=== PATIENT | male | born 1970 | race Caucasian/White ===

== ENCOUNTER 2022-01-30 04:18 | Observation (INO) ==
[2022-01-30] MEDS ORDERED: NITROGLYCERIN 2% OINTMENT 30GM TUBE EXT STA (04:32)
[2022-01-30] MEDS ORDERED: ONDANSETRON INJ 2 MG/ML 2 ML VIAL IV STA (04:32)
[2022-01-30] MEDS ORDERED: fentaNYL citrate 100 MCG/2 ML VIAL IV STA ×2 (04:32→06:12)
--- NOTE | 2022-01-30 04:41 | Emergency Department Note ---
History of Present Illness General Chief complaint: Chest Pain Time Seen by Provider: 01/30/22 04:24 Source: patient Mode of arrival: EMS Limitations: no limitations History of Present Illness Provider complaint: Chest pain Maximum Pain Intensity: 6 This is a 51-year-old male who presents complaining of chest pain. Patient states he woke up tonight with what he thought was indigestion, belching several times, and symptoms temporarily abated however then returned shortly after. He states he feels the pain in the center of his chest, radiating into the bilateral shoulders and into the jaw. He states he did break out in a sweat and felt lightheaded. He then had evolving nausea and just prior to EMS arrival vomited twice. He tried to take 2 ibuprofen at home without any relief. In route EMS provided him with 4 baby aspirin as well as several doses of nitroglycerin which did improve his pain but did not resolve it. Patient denies any prior similar episodes. Patient states he does have medication for high blood pressure and high cholesterol that he was recently prescribed but he has not yet started. He states he is a smoker. He states his father began having heart problems in his 50s. No history of diabetes. He denies any recent fevers, chills, or illness. Home Medications Medication Instructions Recorded Confirmed Type olmesartan 20 1 tab PO DAILY #30 tabs 01/14/22 01/25/22 Rx mg-hydrochlorothiazide 12.5 mg tablet rosuvastatin 20 mg tablet 20 mg PO DAILY #30 tabs 01/14/22 01/25/22 Rx erythromycin 5 mg/gram (0.5 %) eye 0.5 inch ophthalmic (eye) BID #3.5 01/20/22 01/25/22 Rx ointment grams hydrocodone 5 mg-acetaminophen 325 1 tab PO Q4H PRN pain #10 tabs 01/20/22 Rx mg tablet Allergies Allergy/AdvReac Type Severity Reaction Status Date / Time No Known Drug Allergies Allergy Verified 01/28/22 11:10 Past Med/Surg History Medical History Fatty liver GERD (gastroesophageal reflux disease) Hyperlipidemia Hypertension Obesity Smoker Surgical History Family history of reaction to anesthesia FATHER-ALLERGIC TO DEMEROL (BECAME VIOLENT) History of esophagogastroduodenoscopy (EGD) History of tooth extraction Hx of eye surgery LEFT EYE SOCKET SURGERY D/T FX ([facility])-- >15 yrs ago Family History Father Family history of diabetes mellitus Myocardial infarction Mother Family history of diabetes mellitus Other No family history of adverse response to anesthesia Social History Smoking Status: Current every day smoker Tobacco Type: Cigarettes Cigarettes Per Day: 1 pack; Second Hand Exposure: Yes (in the past); Hx Alcohol Use: Yes Alcohol type: hard liquor Alcohol Intake Frequency Comment: drinks a 5th of alcohol a week Hx Substance Use: No Preferred Language: Maori Communication Ability: Effective Visual Impairment: No Limitations Hearing Ability: Normal Sports Specialist Required: No Beliefs That Will Affect Care: None marital status: Current Living Situation: Alone current occupational status: employed current occupation: driver/merchandiser How many Children do You have: 1 Other Information That Helps Us Care for You: No Feels Safe at Home: Yes Safety Concerns: Feels Safe At This Time during the past year weight has: increased > 10 lbs Dental Care, Regularly: Yes Assistive Devices: Denture - Upper Review of Systems A total of 10 systems reviewed and were otherwise negative All systems reviewed & are unremarkable except as noted in HPI & below Physical Exam Vital Signs Vital Signs - 24 hr 01/30/22 04:19 01/30/22 04:32 01/30/22 04:32 Temperature 36.7 C Temperature Source Oral Pulse Rate 68 Pulse Rate [Finger] 77 Pulse Rhythm Regular Pulse Rhythm [Finger] Pulse Strength Normal Pulse Strength [Finger] Respiratory Rate 17 19 Respiratory Effort / Characteristics Non-Labored Spontaneous Non-Labored Spontaneous Respiratory Depth Normal Normal Respiratory Pattern Regular Regular Blood Pressure 126/75 Blood Pressure [Right Arm] 108/80 Blood Pressure Mean 92 Blood Pressure Mean [Right Arm] 89 Pulse Oximetry 94 96 Oxygen Delivery Method Room Air Room Air Room Air Oxygen Flow Rate Sepsis Recent Fever Within 48 Hours No Sepsis New/Unexplained Change in Mental Status N/A Sepsis Action Taken by Nursing No Action Required 01/30/22 04:55 01/30/22 05:16 01/30/22 05:30 Temperature Temperature Source Pulse Rate Pulse Rate [Finger] 67 65 62 Pulse Rhythm Pulse Rhythm [Finger] Pulse Strength Pulse Strength [Finger] Respiratory Rate 13 13 15 Respiratory Effort / Characteristics Non-Labored Spontaneous Non-Labored Spontaneous Respiratory Depth Normal Normal Respiratory Pattern Regular Regular Blood Pressure Blood Pressure [Right Arm] 119/85 113/75 109/76 Blood Pressure Mean Blood Pressure Mean [Right Arm] 96 87 87 Pulse Oximetry 95 96 97 Oxygen Delivery Method Nasal Cannula Nasal Cannula Room Air Oxygen Flow Rate 2 2 Sepsis Recent Fever Within 48 Hours Sepsis New/Unexplained Change in Mental Status Sepsis Action Taken by Nursing 01/30/22 06:03 01/30/22 06:07 01/30/22 06:34 Temperature Temperature Source Pulse Rate Pulse Rate [Finger] 68 62 Pulse Rhythm Pulse Rhythm [Finger] Regular Pulse Strength Pulse Strength [Finger] Normal Respiratory Rate 16 18 Respiratory Effort / Characteristics Non-Labored Spontaneous Non-Labored Spontaneous Respiratory Depth Normal Normal Respiratory Pattern Regular Blood Pressure Blood Pressure [Right Arm] 115/81 132/84 Blood Pressure Mean Blood Pressure Mean [Right Arm] 92 100 Pulse Oximetry 96 97 Oxygen Delivery Method Nasal Cannula Nasal Cannula Room Air Oxygen Flow Rate 2 2 Sepsis Recent Fever Within 48 Hours Sepsis New/Unexplained Change in Mental Status Sepsis Action Taken by Nursing GENERAL: alert, well appearing, well nourished, no distress, non-toxic EYE EXAM: normal conjunctiva, PERRL and EOM's grossly intact OROPHARYNX: no exudate, no erythema, lips, buccal mucosa, and tongue normal and mucous membranes are moist NECK: supple, no nuchal rigidity, no adenopathy, non-tender LUNGS: Clear to auscultation. Normal chest wall mechanics, no w/r/r HEART: no murmurs, S1 normal and S2 normal ABDOMEN: abdomen soft, non-tender, normo-active bowel sounds, no masses, no rebound or guarding. BACK: Back is symmetrical on inspection and there is no deformity, no midline tenderness, no CVA tenderness. SKIN: no rashes and no bruising UPPER EXTREMITIES: upper extremities are grossly normal. FROM, nml pulses b/l. LOWER EXTREMITIES: No pitting edema. FROM, nml pulses b/l. NEURO EXAM: Normal sensorium, cranial nerves II-XII grossly intact, normal speech, no gross weakness of arms, no gross weakness of legs. Gross sensation intact. Course Course 0525: Patient states pain now 2/10. We discussed evolving changes noted on the EKG as well as abnormal troponin. 0550: Discussed with Dr. Pedroza. 0622: Dr. Pedroza now at bedside. Administered Medications Aspirin (Aspirin 81 Mg Ectab) 81 mg PO QAM [facility] Stop: 03/01/22 08:59 Last Admin: 01/31/22 09:20 Dose: 81 mg Documented By: SMRadha Admin: 01/30/22 11:22 Dose: 81 mg Documented By: VINCE Erythromycin (Erythromycin Op Oint 5 Mg/Gm 3.5 Gm Tube) 0.5 appln OP BID TOM Stop: 02/09/22 20:59 Last Admin: 01/30/22 20:10 Dose: 0.5 appln Documented By: PAH Metoprolol Tartrate (Metoprolol Tartrate 25 Mg Tab) 25 mg PO BID TOM Stop: 03/01/22 08:59 Last Admin: 01/31/22 09:20 Dose: 25 mg Documented By: Admin: 01/30/22 20:11 Dose: 25 mg Documented By: Admin: 01/30/22 10:31 Dose: 25 mg Documented By: VINCE Miscellaneous (Remove Nicoderm Patch) 1 each N/A DAILY@0859 [facility] Stop: 03/02/22 08:58 Last Admin: 01/31/22 09:22 Dose: Not Given Documented By: KENNY Nicotine (Nicotine 21 Mg/24 Hr Tdsy) 21 mg TD [facility] TOM Stop: 03/02/22 08:59 Last Admin: 01/31/22 06:17 Dose: 21 mg Documented By: CHANTALE Olmesartan (Olmesartan Medoxomil 20 Mg Tab) 20 mg PO [facility] TOM Stop: 03/02/22 08:59 Last Admin: 01/31/22 09:21 Dose: 20 mg Documented By: KENNY Rosuvastatin Calcium (Rosuvastatin Calcium 20 Mg Tab) 40 mg PO DAILY TOM Stop: 03/01/22 08:59 Last Admin: 01/31/22 09:21 Dose: 40 mg Documented By: Admin: 01/30/22 10:31 Dose: 40 mg Documented By: VINCE Ticagrelor (Ticagrelor 90 Mg Tab) 90 mg PO BID TOM Stop: 03/01/22 20:59 Last Admin: 01/31/22 09:20 Dose: 90 mg Documented By: Admin: 01/30/22 20:11 Dose: 90 mg Documented By: PAH Discontinued Medications Adenosine (Adenosine Iv Soln 3 Mg/Ml 20 Ml Vial) Confirm Administered Dose 60 mg IV .STK-MED ONE Stop: 01/30/22 06:58 Last Admin: 01/30/22 07:54 Dose: 6 mg Documented By: BRINDA Diltiazem HCl (Diltiazem Hcl 5 Mg/Ml 5 Ml Vial ([facility] Use Only)) Confirm Adm inistered Dose 25 mg .ROUTE .STK-MED ONE Stop: 01/30/22 07:53 Last Admin: 01/30/22 07:56 Dose: 15 mg Documented By: BRINDA Fentanyl Citrate (Fentanyl Citrate 100 Mcg/2 Ml Vial) 50 mcg IV NOW STA Stop: 01/30/22 04:33 Last Admin: 01/30/22 04:42 Dose: 50 mcg Documented By: KACEY Fentanyl Citrate (Fentanyl Citrate 100 Mcg/2 Ml Vial) 50 mcg IV NOW STA Stop: 01/30/22 06:13 Last Admin: 01/30/22 06:13 Dose: 50 mcg Documented By: KACEY Fentanyl Citrate (Fentanyl Citrate 100 Mcg/2 Ml Vial) Confirm Administered Dose 100 mcg .ROUTE .STK-MED ONE Stop: 01/30/22 06:17 Last Admin: 01/30/22 07:43 Dose: 100 mcg Documented By: BRINDA Heparin Sodium (Porcine) (Heparin (Porcine) 1000 Unit/Ml 10 Ml ([facility] Use Only)) Confirm Administered Dose 10,000 units .ROUTE .STK-MED ONE Stop: 01/30/22 06:17 Last Admin: 01/30/22 07:43 Dose: 10,000 units Documented By: BRINDA Heparin Sodium (Porcine) (Heparin (Porcine) 1000 Unit/Ml 10 Ml ([facility] Use Only)) Confirm Administered Dose 10,000 units .ROUTE .STK-MED ONE Stop: 01/30/22 06:57 Last Admin: 01/30/22 07:54 Dose: 9,000 units Documented By: BRINDA Heparin Sodium/Sodium Chloride (Heparin In Nss Infusion 1000 Unit/500 Ml (2 U/Ml) Bag) Confirm Administered Dose 3,000 units IV .STK-MED ONE Stop: 01/30/22 06:18 Last Admin: 01/30/22 07:47 Dose: 3,000 units Documented By: RASHEED Sodium Chloride (Nss 1000ml) 1,000 mls @ 75 mls/hr IV .[id number] TOM Stop: 01/30/22 11:49 Last Infusion: 01/30/22 22:57 Dose: 0 mls/hr Documented By: Admin: 01/30/22 09:28 Dose: 75 mls/hr Documented By: VINCE Magnesium Sulfate/Dextrose (Magnesium Sulfate / D5w) 1 gm in 100 mls @ 50 mls/hr IV ONE ONE Stop: 01/30/22 19:08 Last Infusion: 01/30/22 19:46 Dose: 0 mls/hr Documented By: Admin: 01/30/22 17:32 Dose: 50 mls/hr Documented By: VINCE Lorazepam (Lorazepam 0.5 Mg Tab) 0.5 mg PO NOW STA Stop: 01/30/22 17:19 Last Admin: 01/30/22 17:40 Dose: 0.5 mg Documented By: VINCE Metoprolol Tartrate (Metoprolol Tartrate 1 Mg/Ml Vial) Confirm Administered Dose 5 mg IV .STK-MED ONE Stop: 01/30/22 07:05 Last Admin: 01/30/22 07:54 Dose: 5 mg Documented By: BRINDA Metoprolol Tartrate (Metoprolol Tartrate 1 Mg/Ml Vial) Confirm Administered Dose 5 mg IV .STK-MED ONE Stop: 01/30/22 07:31 Last Admin: 01/30/22 09:10 Dose: Not Given Documented By: VINCE Midazolam HCl (Midazolam Hcl 1 Mg/Ml 2ml Vial) Confirm Administered Dose 2 mg .ROUTE .STK-MED ONE Stop: 01/30/22 06:17 Last Admin: 01/30/22 07:43 Dose: 2 mg Documented By: BRINDA Midazolam HCl (Midazolam Hcl 1 Mg/Ml 2ml Vial) Confirm Administered Dose 2 mg .ROUTE .STK-MED ONE Stop: 01/30/22 07:08 Last Admin: 01/30/22 07:55 Dose: 2 mg Documented By: BRINDA Morphine Sulfate (Morphine Sulfate 4 Mg/Ml 1 Ml Carp\Vial) 4 mg IV NOW STA Stop: 01/30/22 05:17 Last Admin: 01/30/22 05:19 Dose: 4 mg Documented By: KACEY Nicardipine HCl (Nicardipine Hcl Inj 2.5 Mg/Ml 10 Ml Amp) Confirm Administered Dose 25 mg .ROUTE .STK-MED ONE Stop: 01/30/22 06:17 Last Admin: 01/30/22 07:43 Dose: 25 mg Documented By: RASHEED Nitroglycerin (Nitroglycerin 2% Ointment 30gm Tube) 1 inch EXT NOW STA Stop: 01/30/22 04:33 Last Admin: 01/30/22 04:53 Dose: 1 inch Documented By: KACEY Nitroglycerin/Dextrose (Nitroglycerin/D5w 100mcg/Ml 20ml Syr) Confirm Administered Dose 2,000 mcg .ROUTE .STK-MED ONE Stop: 01/30/22 06:18 Last Admin: 01/30/22 07:47 Dose: 2,000 mcg Documented By: RASHEED Ondansetron HCl (Ondansetron Inj 2 Mg/Ml 2 Ml Vial) 4 mg IV NOW STA Stop: 01/30/22 04:33 Last Admin: 01/30/22 04:42 Dose: 4 mg Documented By: KACEY Ticagrelor (Ticagrelor 90 Mg Tab) Confirm Administered Dose 180 mg .ROUTE .STK- MED ONE Stop: 01/30/22 08:10 Last Admin: 01/30/22 08:11 Dose: 180 mg Documented By: BRINDA Critical Care Time Critical Care Time: Yes Total Critical Care Time: 46 Critical care of 46 min performed to assess and manage high likelihood of life- threatening ACS, involving labs and imaging performed with assessment to evaluate chest pain diagnosis with frequent reassessment. This time includes bedside time, treatment discussions with patient/family/consultants, documentation time and excludes procedure time. Medical Decision Making Differential Diagnosis Differential diagnoses includes but is not limited to acute coronary syndrome, myocardial infarction, pericarditis, pulmonary embolus, aortic dissection, pneumonia, pneumothorax, musculoskeletal, shingles, esophageal. Medical Records Attestation: I reviewed the patient's medical records. Home Medications Current Medication List: was personally reviewed by me Laboratory Data Attestation: I reviewed the patient's lab results. Result diagrams: 01/31/22 04:54 01/31/22 04:54 Lab Results 01/30/22 01/30/22 01/30/22 Range/Units 04:30 04:30 04:30 WBC 6.86 (4.8-10.8) K/ul RBC 4.57 L (4.63-6.08) M/uL Hgb 14.1 (14.0-18.0) g/dl Hct 41.0 (40.1-51.0) % MCV 89.7 (80.0-100.0) fL MCH 30.9 (25.0-34.0) pg MCHC 34.4 (32.0-36.0) g/dL RDW Std Deviation 40.4 (36.4-46.3) fL RDW Coeff of Marci 12.5 (11.5-14.5) % Plt Count 209 (130-400) K/uL MPV 10.5 (9.4-12.4) fL Immature Gran % (Auto) 0.4 % Neut % (Auto) 60.6 % Lymph % (Auto) 25.2 % [place] % (Auto) 9.9 % Eos % (Auto) 3.2 % Baso % (Auto) 0.7 % Neut # (Auto) 4.15 (1.4-6.5) K/uL Lymph # (Auto) 1.73 (1.2-3.4) K/uL [place] # (Auto) 0.68 (0.24-0.82) K/uL Eos # (Auto) 0.22 (0-0.50) K/uL Baso # (Auto) 0.05 (0-0.2) K/uL Immature Gran # (Auto) 0.03 H (0.00-0.02) K/uL PT 10.7 (9.0-12.0) Seconds INR 1.0 (0.9-1.1) Activ Coag Time Kaolin (94-140) SECONDS Sodium 138 (136-145) mmol/L Potassium 4.1 (3.5-5.1) mmol/L Chloride 104 (98-107) mmol/L Carbon Dioxide 26 (21-32) mmol/L Anion Gap 8 (3-11) BUN 14 (6-23) mg/dl Creatinine 1.03 (0.6-1.4) mg/dl Est Cr Clr Drug Dosing 113.1 ml/min Est GFR ( Amer) 97.0 ml/min Est GFR (Non-Af Amer) 83.7 ml/min BUN/Creatinine Ratio 13.6 (10-20) Glucose 107 H (70-99(Fasting)) mg/dl Calcium 9.2 (8.5-10.1) mg/dl Magnesium 2.0 (1.7-2.4) mg/dl Total Bilirubin 0.4 (0.2-1.0) mg/dl AST 24 (13-39) U/L ALT 33 (7-52) U/L Alkaline Phosphatase 50 (34-104) U/L Troponin I High Sens 44.5 H (0-20) pg/ml Total Protein 6.8 (6.0-8.3) gm/dl Albumin 4.0 (3.4-5.0) gm/dl Globulin 2.8 (2.5-4.0) gm/dl Albumin/Globulin Ratio 1.4 (0.9-2) Lipase 28 (11-82) U/L SARS-CoV-2, RNA, NAAT (NEGATIVE) 01/30/22 01/30/22 01/30/22 Range/Units 04:52 07:19 07:33 WBC (4.8-10.8) K/ul RBC (4.63-6.08) M/uL Hgb (14.0-18.0) g/dl Hct (40.1-51.0) % MCV (80.0-100.0) fL MCH (25.0-34.0) pg MCHC (32.0-36.0) g/dL RDW Std Deviation (36.4-46.3) fL RDW Coeff of Marci (11.5-14.5) % Plt Count (130-400) K/uL MPV (9.4-12.4) fL Immature Gran % (Auto) % Neut % (Auto) % Lymph % (Auto) % [place] % (Auto) % Eos % (Auto) % Baso % (Auto) % Neut # (Auto) (1.4-6.5) K/uL Lymph # (Auto) (1.2-3.4) K/uL [place] # (Auto) (0.24-0.82) K/uL Eos # (Auto) (0-0.50) K/uL Baso # (Auto) (0-0.2) K/uL Immature Gran # (Auto) (0.00-0.02) K/uL PT (9.0-12.0) Seconds INR (0.9-1.1) Activ Coag Time Kaolin 208 H 248 H (94-140) SECONDS Sodium (136-145) mmol/L Potassium (3.5-5.1) mmol/L Chloride (98-107) mmol/L Carbon Dioxide (21-32) mmol/L Anion Gap (3-11) BUN (6-23) mg/dl Creatinine (0.6-1.4) mg/dl Est Cr Clr Drug Dosing ml/min Est GFR ( Amer) ml/min Est GFR (Non-Af Amer) ml/min BUN/Creatinine Ratio (10-20) Glucose (70-99(Fasting)) mg/dl Calcium (8.5-10.1) mg/dl Magnesium (1.7-2.4) mg/dl Total Bilirubin (0.2-1.0) mg/dl AST (13-39) U/L ALT (7-52) U/L Alkaline Phosphatase (34-104) U/L Troponin I High Sens (0-20) pg/ml Total Protein (6.0-8.3) gm/dl Albumin (3.4-5.0) gm/dl Globulin (2.5-4.0) gm/dl Albumin/Globulin Ratio (0.9-2) Lipase (11-82) U/L SARS-CoV-2, RNA, NAAT NEGATIVE (NEGATIVE) Imaging Data My Impression: X-ray: I interpreted the following studies. Chest: A single view study of the chest was reviewed and was negative for cardiomegaly, focal infiltrate, effusion, pulmonary edema, or wide mediastinum. ECG Data Attestation: I personally reviewed and interpreted this ECG as follows: Indication: + chest pain Rate (beats per minute): 60 Rhythm: + normal sinus ECG Intervals/blocks: + Normal QRS and + Normal QT ECG [place]: + Normal ECG ST segments: + ST depression (III,aVF, V2-5) and + ST elevation (I, aVL) MDM Narrative An order was placed for continuous cardiac monitoring. The monitor shows a rate of _90_ with _normal sinus__ rhythm. This is a 51-year-old male presents emergency department with chest pain, nausea and vomiting, diaphoresis, and lightheadedness. Patient with multiple risk factors for coronary artery disease although no documented prior history. He has not yet started medications that were recently prescribed for high blood pressure and high cholesterol. Patient is a smoker. There is family history of heart problems beginning in the 50s and his father. Initial EKG abnormal however I do not feel enough to call a heart alert. Patient did have some improvement of pain with nitro given by EMS and was given aspirin prior to arrival. He was given additional nitro and fentanyl with continued improvement of pain. Repeat EKG #2 showed improvement in the abnormalities that were initially seen. We continue to try and make the patient pain-free and perform serial EKGs. Unfortunately patient's pain persisted, and repeat EKG showed recurring ST depressions with concern for possible early ST elevation although not yet 1 mm. Given risk factors, concerning story, EKG changes, and a troponin that then resulted elevated, I discussed the case with on-call interventional cardiology, or Dr. Pedroza. He agreed patient should be taken for cardiac catheterization more urgently. A heart alert was activated and [facility] staff including Dr. Pedroza presented to the bedside. Dr. Pedroza did not wish for patient to have any other anticoagulation prior to his evaluation and cath. Patient taken to the [facility] in stable condition. He was hemodynamically stable in the emergency room, no ectopy or dysrhythmia noted. I do not suspect acute infectious or vascular etiology of his pain. I do not suspect occult pulmonary etiology including pneumonia or PE. Impression & Plan Chest pain, Tobacco abuse, Acute coronary syndrome, Hypertension, Abnormal ECG Discharge Plan Visit Data Chief Complaint: Chest Pain ED Provider: Melissa Garcia Discharge Problem: Chest pain, Tobacco abuse, Acute coronary syndrome, Hypertension, Abnormal ECG Patient Disposition: Admitted As Inpatient Discharge Instructions Interventions: ED Discharge Assessment Last Done: 01/30/22 06:34
[2022-01-30 04:45] LABS: Basophils # (auto) 0.05 K/uL (0-0.2); Basophils % (auto) 0.7 %; Eosinophils # (auto) 0.22 K/uL (0-0.50); Eosinophils % (auto) 3.2 %; Hemoglobin 14.1 g/dl (14.0-18.0); Immature Granulocytes # (auto) 0.03 K/uL (0.00-0.02); Immature Granulocytes % (auto) 0.4 %; Lymphocytes # (auto) 1.73 K/uL (1.2-3.4); Lymphocytes % (auto) 25.2 %; Mean Corpuscular Hemoglobin 30.9 pg (25.0-34.0); Mean Corpuscular Hgb Conc 34.4 g/dL (32.0-36.0); Mean Corpuscular Volume 89.7 fL (80.0-100.0); Mean Platelet Volume 10.5 fL (9.4-12.4); Monocytes # (auto) 0.68 K/uL (0.24-0.82); Monocytes % (auto) 9.9 %; Neutrophils # (auto) 4.15 K/uL (1.4-6.5); Neutrophils % (auto) 60.6 %; Platelet Count 209 K/uL (130-400); RDW Coefficient of Variation 12.5 % (11.5-14.5); RDW Standard Deviation 40.4 fL (36.4-46.3); Red Blood Count 4.57 M/uL (4.63-6.08); White Blood Count 6.86 K/ul (4.8-10.8)
[2022-01-30 04:56] LABS: Prothrombin Time 10.7 Seconds (9.0-12.0)
[2022-01-30 05:09] LABS: Troponin I High Sensitivity 44.5 pg/ml (0-20)
[2022-01-30] MEDS ORDERED: MoRPHine SULFATE 4 MG/ML 1 ML CARP\\VIAL IV STA (05:16)
[2022-01-30 05:22] LABS: Albumin Globulin Ratio 1.4 (0.9-2); BUN Creatinine Ratio 13.6 (10-20); Bilirubin,Total 0.4 mg/dl (0.2-1.0); Calcium 9.2 mg/dl (8.5-10.1); Creatinine Clr Calc Pharmacy 113.1 ml/min; Est GFR (Non-African American) 83.7 ml/min; Globulin 2.8 gm/dl (2.5-4.0); Potassium 4.1 mmol/L (3.5-5.1); Total Protein 6.8 gm/dl (6.0-8.3)
[2022-01-30] MEDS ORDERED: HEPARIN (PORCINE) 1000 UNIT/ML 10 ML (CATH LAB USE ONLY) ONE ×2 (06:16→06:56)
[2022-01-30] MEDS ORDERED: fentaNYL citrate 100 MCG/2 ML VIAL ONE (06:16)
[2022-01-30] MEDS ORDERED: niCARdipine HCL INJ 2.5 MG/ML 10 ML AMP ONE (06:16)
[2022-01-30] MEDS ORDERED: MIDAZOLAM HCL 1 MG/ML 2ML VIAL ONE ×2 (06:16→07:07)
[2022-01-30] MEDS ORDERED: NITROGLYCERIN/D5W 100MCG/ML 20ML SYR ONE (06:17)
--- NOTE | 2022-01-30 06:36 | Pre Anesthesia Assessment ---
Date of Service January 30, 2022 Pre Sedation Assessment Vital Signs Temp Pulse Pulse Resp BP BP Pulse Ox 01/30/22 06:34 01/30/22 06:07 62 18 132/84 97 01/30/22 06:03 68 16 115/81 96 01/30/22 05:30 62 15 109/76 97 01/30/22 05:16 65 13 113/75 96 01/30/22 04:55 67 13 119/85 95 01/30/22 04:32 77 19 108/80 96 01/30/22 04:32 01/30/22 04:19 98.1 F 68 17 126/75 94 O2 Del Method O2 Flow Rate 01/30/22 06:34 Room Air 01/30/22 06:07 Nasal Cannula 2 01/30/22 06:03 Nasal Cannula 2 01/30/22 05:30 Room Air 01/30/22 05:16 Nasal Cannula 2 01/30/22 04:55 Nasal Cannula 2 01/30/22 04:32 Room Air 01/30/22 04:32 Room Air 01/30/22 04:19 Room Air Cardiovascular RRR, no murmur, no edema Respiratory normal respiratory effort, lungs clear to auscultation Pre-Sedation Airway Assessment Smoking Status: Current every day smoker Hx Sleep Apnea: No Hx Difficult Intubation: No Short, Thick Neck: No Oral Cavity: + WNL Mallampati Class: III ASA: ASA3 Procedure Planning Contraindications for Sedation: none Current Medications Reviewed: Yes Notes The planned sedation has been discussed with the patient. Informed Consent was obtained. I have identified the patient, determined the appropriateness of sedation and have assessed the patient immediately prior to the procedure. All medicine(s) and interventions are by my order.
--- NOTE | 2022-01-30 06:42 | Cardiology Consultation ---
Date of Consultation January 30, 2022 Assessment & Plan (1) Acute coronary syndrome: Plan Presentation consistent with high risk ACS and recommend proceeding with urgent cardiac catheterization and possible primary PCI. No apparent contraindications to procedure. Discussed risks, benefits, alternatives of procedure with patient and they are willing to proceed. Further recommendations pending findings of coronary angiography. History of Present Illness History of Present Illness Mr. Palacio is a 51-year-old man here with acute chest pain and ECG concerning for high risk ACS. Patient seen emergently in the ED after heart alert activated due to refractory chest pain and dynamic ST changes.. No prior cardiac history. Cardiac risk factors include family history of premature CAD (father in 50s), ongoing smoking (1ppd x30), dyslipidemia, hypertension, obesity. Currently taking no medications. Other medical issues include GERD, fatty liver, prior left neck mass. Chest pain began acutely tonight ~2 AM, waking him from sleep. Pain across his chest to his back into his arms. Initially thought was indigestion, tried ibuprofen without relief. Called EMS, given sublingual nitroglycerin in route arriving to ED around 430. Denies similar symptoms in the past. Had stuttering chest pain in ED at its worst 10 out of 10, down to 1 out of 10 after morphine, fentanyl and nitro patch. Systolic pressures to 90s with initial nitroglycerin. Initial ECG showed sinus rhythm with new ST depression/T wave inversions in leads III, aVF as well as very subtle <[address] elevations in 1 and aVL. Serial ECGs showed resolution of ST depressions and return of ST depressions with recurrent chest pain. HS TropI elevated at 44. Social history: Lives independently, . Works as a key punch operator. Allergies Allergy/AdvReac Type Severity Reaction Status Date / Time No Known Drug Allergies Allergy Verified 01/28/22 11:10 Home Medications Medication Instructions Recorded Confirmed Type olmesartan 20 1 tab PO DAILY #30 tabs 01/14/22 01/25/22 Rx mg-hydrochlorothiazide 12.5 mg tablet rosuvastatin 20 mg tablet 20 mg PO DAILY #30 tabs 01/14/22 01/25/22 Rx erythromycin 5 mg/gram (0.5 %) eye 0.5 inch ophthalmic (eye) BID #3.5 01/20/22 01/25/22 Rx ointment grams hydrocodone 5 mg-acetaminophen 325 1 tab PO Q4H PRN pain #10 tabs 01/20/22 01/25/22 Rx mg tablet Patient History Medical History Fatty liver GERD (gastroesophageal reflux disease) Hyperlipidemia Hypertension Obesity Smoker Surgical History Family history of reaction to anesthesia FATHER-ALLERGIC TO DEMEROL (BECAME VIOLENT) History of esophagogastroduodenoscopy (EGD) History of tooth extraction Hx of eye surgery LEFT EYE SOCKET SURGERY D/T FX ([facility])-- >15 yrs ago Family History Father Family history of diabetes mellitus Myocardial infarction Mother Family history of diabetes mellitus Other No family history of adverse response to anesthesia Social History Smoking Status: Current every day smoker Tobacco Type: Cigarettes Cigarettes Per Day: 1 Pack Daily - advised; Second Hand Exposure: Yes (in the past); Hx Alcohol Use: Yes Alcohol type: hard liquor Alcohol Intake Frequency Comment: drinks a 5th of alcohol a week Hx Substance Use: No Preferred Language: Telugu Communication Ability: Effective Visual Impairment: No Limitations Hearing Ability: Normal Grain Elevator Clerk Required: No Beliefs That Will Affect Care: None marital status: Current Living Situation: Alone current occupational status: employed current occupation: trash truck driver How many Children do You have: 1 Feels Safe at Home: Yes during the past year weight has: increased > 10 lbs Dental Care, Regularly: Yes Assistive Devices: Denture - Upper and Glasses Review of Systems Review of Systems: All systems reviewed & are unremarkable except as noted in HPI & below Physical Exam Physical Exam: General: Uncomfortable HEENT: Sclerae anicteric Lungs: Clear anteriorly Cardiac: Distant heart sounds, regular, no murmurs Vascular: 2+ radial, diminished DP pulses bilaterally Abdomen: Soft, nontender Extremities: Well perfused, no peripheral edema Neuro: Nonfocal Psych: Alert orient x3, normal affect and mood Results & Data ([facility]) Vital Signs (Past 12 Hours) Vital Signs Temp Pulse Pulse Resp BP BP Pulse Ox 01/30/22 06:34 01/30/22 06:07 62 18 132/84 97 01/30/22 06:03 68 16 115/81 96 01/30/22 05:30 62 15 109/76 97 01/30/22 05:16 65 13 113/75 96 01/30/22 04:55 67 13 119/85 95 01/30/22 04:32 77 19 108/80 96 01/30/22 04:32 01/30/22 04:19 98.1 F 68 17 126/75 94 O2 Del Method O2 Flow Rate 01/30/22 06:34 Room Air 01/30/22 06:07 Nasal Cannula 2 01/30/22 06:03 Nasal Cannula 2 01/30/22 05:30 Room Air 01/30/22 05:16 Nasal Cannula 2 01/30/22 04:55 Nasal Cannula 2 01/30/22 04:32 Room Air 01/30/22 04:32 Room Air 01/30/22 04:19 Room Air PG Care Time/CCT Total # of Minutes Spent Total Time Spent with Patient: Total time spent is greater than 50% in coordination of care (as documented) at patient's floor/unit and/or counseling patient: Coding Level of Care Code 05290 Inpt Consult Level 4 Diagnoses Acute coronary syndrome I24.9
--- NOTE | 2022-01-30 06:49 | History & Physical Report ---
Date of Service January 30, 2022 Assessment & Plan (1) Chest pain: Plan: 51yo male with history of HTN, HLP, tobacco use and family history of CAD in father (in late 50's) presents with sharp, substernal chest pain with associated nausea/lightheadedness and diaphoresis. Found with dynamic EKG changes predominantly in lateral leads. Initial troponin is elevated at 44.5. Patient still with mild chest discomfort despite treatment with ASA, Nitro, Fentanyl. Heart Alert activated. Patient is presently being taken to the microbiology lab technician. -Will admit to PCU/ICU -Post catheterization treatment per Cardiology -Trend troponin -Check HgbA1C, lipid panel -Initiate ASA -Check 2D echo (2) Hypertension: Plan: Blood pressure has been adequately controlled, presently 132/84. He is prescribed Olmesartan/HCTZ which he does not routinely take. -Continue to monitor BP -Hold Olmesartan/HCTZ for now (3) Hyperlipidemia: Plan: Patient with reported history of HLP. He is prescribed Crestor which he does not routinely take -Will check Lipid panel -Continue Crestor (4) Smoker: Plan: Active smoker. -Cessation counseling ordered Patient also reports he drinks approximately 1/5 of liquor per week. -Will place on AWSS At risk protocol and monitor closely for signs and symptoms of EtOH withdrawal F/E/N - Heplock. Check Mg and PO4 and replete as needed. K is acceptable at 4.1, NPO for now Ppx - per cardiology after microbiology lab technician Code - Full Code per discussion with patient Dispo - Patient presently in microbiology lab technician - further instruction forthcoming. Note will be updated with findings and recommendations History of Present Illness Chief Complaint: chest pain Primary Care Provider: DO Soham Lee Hakeem is a 51yo male with history of HTN, HLP, Obesity (BMI=37.7), tobacco abuse and FHx of CAD (Father in late 50's with CAD) presenting with chest pain. Patient was in his usual state of health until he woke from sleep at 02:00 with sharp, substernal chest pain with some belching. He thought the discomfort may be secondary to indigestion. He drank some water and took 2 Ibuprofen with some relief. The pain then returned with some diaphoresis and lightheadedness, radiation to the jaw and bilateral shoulders, more severe. He also felt dizzy and nauseous with one episode of non-bloody vomiting. He checked [employer] and called EMS due to concern for [place]. He was provided Nitro and ASA 324mg by EMS with some improvement in chest discomfort. Upon arrival to the ER he was afebrile, HD stable. EKG with dynamic changes in the lateral leads - I and aVL. He was provided with Fentanyl, Nitropaste - still with some chest pain, now 04/19. Code Heart was activated secondary to dynamic EKG changes, persistence of chest pain. Patient has been taken to the microbiology lab technician. Further information forthcoming. ER Course: Fentanyl 50mcg x 2 doses, Zofran 4mg, Nitro 1 inch, Morphine 4mg IV Allergies Allergy/AdvReac Type Severity Reaction Status Date / Time No Known Drug Allergies Allergy Verified 01/28/22 11:10 Home Medications Medication Instructions Recorded Confirmed Type olmesartan 20 1 tab PO DAILY #30 tabs 01/14/22 01/25/22 Rx mg-hydrochlorothiazide 12.5 mg tablet rosuvastatin 20 mg tablet 20 mg PO DAILY #30 tabs 01/14/22 01/25/22 Rx erythromycin 5 mg/gram (0.5 %) eye 0.5 inch ophthalmic (eye) BID #3.5 01/20/22 01/25/22 Rx ointment grams hydrocodone 5 mg-acetaminophen 325 1 tab PO Q4H PRN pain #10 tabs 01/20/22 01/25/22 Rx mg tablet Past Med/Surg History Medical History Fatty liver GERD (gastroesophageal reflux disease) Hyperlipidemia Hypertension Obesity Smoker Surgical History Family history of reaction to anesthesia FATHER-ALLERGIC TO DEMEROL (BECAME VIOLENT) History of esophagogastroduodenoscopy (EGD) History of tooth extraction Hx of eye surgery LEFT EYE SOCKET SURGERY D/T FX ([facility])-- >15 yrs ago Family History Father Family history of diabetes mellitus Myocardial infarction Mother Family history of diabetes mellitus Other No family history of adverse response to anesthesia Social History Smoking Status: Current every day smoker Tobacco Type: Cigarettes Cigarettes Per Day: 1 Pack Daily - advised; Second Hand Exposure: Yes (in the past); Hx Alcohol Use: Yes Alcohol type: hard liquor Alcohol Intake Frequency Comment: drinks a 5th of alcohol a week Hx Substance Use: No Preferred Language: Sami Communication Ability: Effective Visual Impairment: No Limitations Hearing Ability: Normal Dolphin Researcher Required: No Beliefs That Will Affect Care: None marital status: Current Living Situation: Alone current occupational status: employed current occupation: route salesman and driver How many Children do You have: 1 Feels Safe at Home: Yes during the past year weight has: increased > 10 lbs Dental Care, Regularly: Yes Assistive Devices: Denture - Upper and Glasses Review of Systems Review of Systems: All systems reviewed & are unremarkable except as noted in HPI & below Physical Exam Physical Exam: General: patient resting comfortably, NAD, non-toxic in appearance, AA&O x 4, appears anxious Skin: warm, dry, intact, no rashes or lesions HEENT: NC/AT, PERRL, EOMI, anicteric sclera, conjunctiva without injection, external ear normal to inspection and nontender, nares patent, moist mucus membranes, dentition intact, no oropharyngeal lesions, neck supple, trachea midline, no LAD, no thyromegaly, no JVD Heart: +S1/S2, regular, bracycardic with HR 58-60, occasional ectopy, no m/r/g Lungs: equal air entry bilaterally, no rales/rhonchi/wheezes Abd: +BS, soft, NT/ND, no masses/organomegaly/ascites Ext: warm, 2+ pulses in UE/LE bilaterally, no clubbing/cyanosis or edema Neuro: nonfocal, patient AA&O x 4, speech intact, no facial droop, moving all extremities on command with equal strength 5/5 Results & Data Results & Data ([facility]) Vital Signs (Past 12 Hours) Vital Signs Temp Pulse Pulse Resp BP BP Pulse Ox 01/30/22 06:07 62 18 132/84 97 01/30/22 06:03 68 16 115/81 96 01/30/22 05:30 62 15 109/76 97 01/30/22 05:16 65 13 113/75 96 01/30/22 04:55 67 13 119/85 95 01/30/22 04:32 77 19 108/80 96 01/30/22 04:32 01/30/22 04:19 36.7 C 68 17 126/75 94 O2 Del Method O2 Flow Rate 01/30/22 06:07 Nasal Cannula 2 01/30/22 06:03 Nasal Cannula 2 01/30/22 05:30 Room Air 01/30/22 05:16 Nasal Cannula 2 01/30/22 04:55 Nasal Cannula 2 01/30/22 04:32 Room Air 01/30/22 04:32 Room Air 01/30/22 04:19 Room Air Laboratory Results Laboratory Results WBC 6.86 K/ul (4.8-10.8) 01/30/22 04:30 RBC 4.57 M/uL (4.63-6.08) L 01/30/22 04:30 Hgb 14.1 g/dl (14.0-18.0) 01/30/22 04:30 Hct 41.0 % (40.1-51.0) 01/30/22 04:30 MCV 89.7 fL (80.0-100.0) 01/30/22 04:30 MCH 30.9 pg (25.0-34.0) 01/30/22 04:30 MCHC 34.4 g/dL (32.0-36.0) 01/30/22 04:30 RDW Std Deviation 40.4 fL (36.4-46.3) 01/30/22 04:30 RDW Coeff of Marci 12.5 % (11.5-14.5) 01/30/22 04:30 Plt Count 209 K/uL (130-400) 01/30/22 04:30 MPV 10.5 fL (9.4-12.4) 01/30/22 04:30 Immature Gran % (Auto) 0.4 % 01/30/22 04:30 Neut % (Auto) 60.6 % 01/30/22 04:30 Lymph % (Auto) 25.2 % 01/30/22 04:30 [place] % (Auto) 9.9 % 01/30/22 04:30 Eos % (Auto) 3.2 % 01/30/22 04:30 Baso % (Auto) 0.7 % 01/30/22 04:30 Neut # (Auto) 4.15 K/uL (1.4-6.5) 01/30/22 04:30 Lymph # (Auto) 1.73 K/uL (1.2-3.4) 01/30/22 04:30 [place] # (Auto) 0.68 K/uL (0.24-0.82) 01/30/22 04:30 Eos # (Auto) 0.22 K/uL (0-0.50) 01/30/22 04:30 Baso # (Auto) 0.05 K/uL (0-0.2) 01/30/22 04:30 Immature Gran # (Auto) 0.03 K/uL (0.00-0.02) H 01/30/22 04:30 PT 10.7 Seconds (9.0-12.0) 01/30/22 04:30 INR 1.0 (0.9-1.1) 01/30/22 04:30 Sodium 138 mmol/L (136-145) 01/30/22 04:30 Potassium 4.1 mmol/L (3.5-5.1) 01/30/22 04:30 Chloride 104 mmol/L (98-107) 01/30/22 04:30 Carbon Dioxide 26 mmol/L (21-32) 01/30/22 04:30 Anion Gap 8 (3-11) 01/30/22 04:30 BUN 14 mg/dl (6-23) 01/30/22 04:30 Creatinine 1.03 mg/dl (0.6-1.4) 01/30/22 04:30 Est Cr Clr Drug Dosing 113.1 ml/min 01/30/22 04:30 Est GFR ( Amer) 97.0 ml/min 01/30/22 04:30 Est GFR (Non-Af Amer) 83.7 ml/min 01/30/22 04:30 BUN/Creatinine Ratio 13.6 (10-20) 01/30/22 04:30 Glucose 107 mg/dl (70-99(Fasting)) H 01/30/22 04:30 Calcium 9.2 mg/dl (8.5-10.1) 01/30/22 04:30 Magnesium 2.0 mg/dl (1.7-2.4) 01/30/22 04:30 Total Bilirubin 0.4 mg/dl (0.2-1.0) 01/30/22 04:30 AST 24 U/L (13-39) 01/30/22 04:30 ALT 33 U/L (7-52) 01/30/22 04:30 Alkaline Phosphatase 50 U/L (34-104) 01/30/22 04:30 Troponin I High Sens 44.5 pg/ml (0-20) H 01/30/22 04:30 Total Protein 6.8 gm/dl (6.0-8.3) 01/30/22 04:30 Albumin 4.0 gm/dl (3.4-5.0) 01/30/22 04:30 Globulin 2.8 gm/dl (2.5-4.0) 01/30/22 04:30 Albumin/Globulin Ratio 1.4 (0.9-2) 01/30/22 04:30 Lipase 28 U/L (11-82) 01/30/22 04:30 SARS-CoV-2, RNA, NAAT NEGATIVE (NEGATIVE) 01/30/22 04:52 ECG Additional Comments: ST depressions present in I and aVL PG Care Time/CCT Total # of Minutes Spent Total Time Spent with Patient: Total time spent is greater than 50% in coordination of care (as documented) at patient's floor/unit and/or counseling patient: Coding Level of Care Code 18438 Initial Inpt Care Lvl 3 Diagnoses Chest pain R07.9 Hypertension I10 Hyperlipidemia E78.5 Smoker F17.200
[2022-01-30] MEDS ORDERED: ADENOSINE IV SOLN 3 MG/ML 20 ML VIAL IV ONE (06:57)
[2022-01-30] MEDS ORDERED: METOPROLOL TARTRATE 1 MG/ML VIAL IV ONE ×2 (07:04→07:30)
--- NOTE | 2022-01-30 07:20 | Electrocardiogram Report ---
Test Reason : Blood Pressure : / mmHG Vent. Rate : 060 BPM Atrial Rate : 060 BPM P-R Int : 154 ms QRS Dur : 112 ms QT Int : 422 ms P-R-T Axes : 055 038 -03 degrees QTc Int : 422 ms Normal sinus rhythm ST segment changes concerning for injury Abnormal ECG When compared with ECG of 20-JAN-2022 12:04, Premature supraventricular complexes are no longer Present ST now depressed in Anterior leads Confirmed by Jay Carpenter ([id number]) on 01/30/2022 7:20:13 AM Referred By: REFERRED SELF Confirmed By:Robson Carpenter
--- NOTE | 2022-01-30 07:21 | Electrocardiogram Report ---
Test Reason : Blood Pressure : / mmHG Vent. Rate : 064 BPM Atrial Rate : 064 BPM P-R Int : 164 ms QRS Dur : 096 ms QT Int : 416 ms P-R-T Axes : -07 011 028 degrees QTc Int : 429 ms Poor data quality, interpretation may be adversely affected Normal sinus rhythm Normal ECG When compared with ECG of 30-JAN-2022 04:52, (unconfirmed) No significant change was found Confirmed by Jay Carpenter ([id number] on 01/30/2022 7:20:39 AM Referred By: REFERRED SELF Confirmed By:Robson Carpenter
--- NOTE | 2022-01-30 07:21 | Electrocardiogram Report ---
Test Reason : Blood Pressure : / mmHG Vent. Rate : 062 BPM Atrial Rate : 062 BPM P-R Int : 154 ms QRS Dur : 098 ms QT Int : 414 ms P-R-T Axes : 054 051 004 degrees QTc Int : 420 ms Normal sinus rhythm ST segement changes concerning for injury Abnormal ECG When compared with ECG of 30-JAN-2022 05:11, Inverted T waves have replaced nonspecific T wave abnormality in Inferior leads Confirmed by Jay Carpenter ([id number]) on 01/30/2022 7:21:15 AM Referred By: REFERRED SELF Confirmed By:Robson Carpenter
--- NOTE | 2022-01-30 07:22 | Electrocardiogram Report ---
Test Reason : Blood Pressure : / mmHG Vent. Rate : 063 BPM Atrial Rate : 063 BPM P-R Int : 150 ms QRS Dur : 102 ms QT Int : 424 ms P-R-T Axes : 053 049 004 degrees QTc Int : 433 ms Sinus rhythm with marked sinus arrhythmia Nonspecific ST abnormality Abnormal ECG When compared with ECG of 30-JAN-2022 04:25, (unconfirmed) Minor improvement in ST segement changes Confirmed by Jay Carpenter ([id number]) on 01/30/2022 7:21:36 AM Referred By: REFERRED SELF Confirmed By:Robson Carpenter
--- NOTE | 2022-01-30 07:23 | XRay Report ---
SINGLE VIEW CHEST CLINICAL HISTORY: Atypical chest pain. FINDINGS: An AP, portable, upright chest radiograph is compared to study dated 01/29/2019. The heart is mildly enlarged. The pulmonary vasculature is not congested. Atelectasis is noted at the lung base s. The lungs and pleural spaces are otherwise clear. No pneumothorax is seen. The bony thorax is beka sly intact. IMPRESSION: Moderate cardiomegaly with no acute cardiopulmonary abnormality identified. ACT 112: Negative or not required by law. Electronically signed by: Nathan Hammond M.D. 01/30/2022 7:22 AM
[2022-01-30] MEDS ORDERED: dilTIAZem HCl 5 MG/ML 5 ML VIAL (CATH LAB USE ONLY) ONE (07:52)
[2022-01-30] MEDS ORDERED: TICAGRELOR 90 MG TAB ONE (08:09)
[2022-01-30] MEDS ORDERED: ACETAMINOPHEN 325 MG TAB PO PRN (08:11)
--- NOTE | 2022-01-30 08:11 | Post Anesthesia Assessment ---
Date of Service January 30, 2022 Post Sedation Assessment Vital Signs Temp Pulse Pulse Resp BP BP Pulse Ox 01/30/22 07:54 126 H 157/87 H 01/30/22 06:34 01/30/22 06:07 62 18 132/84 97 01/30/22 06:03 68 16 115/81 96 01/30/22 05:30 62 15 109/76 97 01/30/22 05:16 65 13 113/75 96 01/30/22 04:55 67 13 119/85 95 01/30/22 04:32 77 19 108/80 96 01/30/22 04:32 01/30/22 04:19 98.1 F 68 17 126/75 94 O2 Del Method O2 Flow Rate 01/30/22 07:54 01/30/22 06:34 Room Air 01/30/22 06:07 Nasal Cannula 2 01/30/22 06:03 Nasal Cannula 2 01/30/22 05:30 Room Air 01/30/22 05:16 Nasal Cannula 2 01/30/22 04:55 Nasal Cannula 2 01/30/22 04:32 Room Air 01/30/22 04:32 Room Air 01/30/22 04:19 Room Air Recovery Score Activity: Moves 4 extremities Respiration: Deep Breath/Cough Circulation: +/-20% PreAnes Value Consciousness: Fully Awake Oxygen Saturation: O2 needed for >90% Discharge Sedation Level of Care: Fast Track Phase II Post Sedation Plan On clinical assessment, the patient appears to have tolerated the sedation without complications. Patient is recovering as anticipated. Patient will continue to be monitored by nursing and may be discharged when sedation discharge criteria are met per below protocol. Upon Completions of procedure up to 15 minutes continue every 5 minute vital signs and the P.A.R. score; then discharge to a Phase I or Fast Track to Phase II per the following guidelines: * Discharge Patient to appropriate Phase II area if PAR is 8 or greater or ret urn to pre- procedure baseline. The post - procedure orders will be as directed. * If PAR score is less than 8 or not return to pre-procedure baseline then patient will follow Phase I monitoring till PAR is reached for Phase II. The Phase I may be done in procedure room or may call to secure a Phase I area. * If naloxone or flumazenil are used for reversal, hold in Phase I for continued monitoring from when last reversal dose was given for a minimum of 60 minutes or longer pending the nurse and/or physician discretion of patient condition before discharge to Phase II. Please call the Sedation Physician to re-evaluate and complete post-note for discharge to Phase II area. Do NOT discharge from procedure sedation or Phase 1 until post- sedation evaluation note is complete by procedure /sedation MD Sedation Discharge Instructions to be given to the patient at discharge to home.
[2022-01-30] MEDS ORDERED: SODIUM CHLORIDE 0.9% 1000ML 1,000 ML IV SCH (08:30)
[2022-01-30] MEDS ORDERED: ROSUVASTATIN CALCIUM 20 MG TAB PO SCH (09:00)
--- NOTE | 2022-01-30 09:07 | Cardiac Catheterization ---
[facility] Data: Equipment Maintenance Technician Cardiac Status Clinical evaluation leading to the procedure CAD Presenation: Non STEMI Anginal Classification: CCS IV Diagnostic Physicians Name: Jay Pedroza MD Closure Device Recommendations: PCI without planned CABG Cardiac Cath Procedure Full Procedure Date January 30, 2022 Pre-Procedure Diagnosis Pre-Procedure Diagnosis: Non STEMI AUC Score AUC Score: 8 Post-Procedure Diagnosis Post-Procedure Diagnosis: Severe CAD Procedure(s) Performed Procedure(s) Performed: Coronary Angiography, Left Heart Cath and IVUS Draftsperson Jay Pedroza MD Engineering Group Leader(s) Jayden Estimated Blood Loss Estimated Blood Loss: 15 Medication(s) Medication(s): Adenosine, Fentanyl, Heparin, Lidocaine 1%, Metoprolol, Nicardipine, Nitroglycerin and Versed Medication(s): Ticagrelor, diltiazem Summary of Findings Indication: High risk ACS Access: 6 Fr right radial artery Catheters: [place], EBU 3.5 guide, pigtail Findings: LM -normal caliber, no significant disease LAD -medium caliber, 70 to 80% earlymid stenosis just after takeoff of D1. Remainder of mid segment, distal vessel without significant disease and wraps around apex. Medium D1 100% occluded at branch point in mid vessel (initially not appreciated). Circumflex -medium caliber, 20 to 30% distal disease. Left PLB without significant disease. RCA -dominant, large caliber, angulated proximal segment (krueger's crook) with 40% stenosis, 30% mid segment disease. Distal vessel without significant disease. Large PDA without disease. LVEDP -19 -- PCI -- Antithrombotic therapy: Heparin, ticagrelor Procedure: Left main cannulated with EBU 3.5 guide Pre-procedure flow FABIANA 3 flow in LAD. FABIANA 0 flow in branch of D1. BMW wire passed across lesion into distal LAD IVUS catheter placed in the mid LAD. Pullback revealed severe, mildly calcified focal disease just after takeoff of D1 (MLA 2.4 mm). Mid LAD lesion predilated with 2.5 compliant balloon Dilated lesion stented with 3.5 x 26 mm Krzysztof drug-eluting stent Stent post-dilated with 4.5 noncompliant balloon proximally IC vasodilators administered for spasm After stent implantation noted to have partial recanalization of previously occluded branch of D1 D1 wired through stent struts with commercial helicopter pilot 50 wire Mid D1 and stent struts dilated with 2.5 balloon Mid D1 stented with 2.25 x 15 mm Krzysztof drug-eluting stent, postdilated with stent balloon. Additional vasodilators administered Post procedure FABIANA 3 flow, stents well expanded with minimal residual stenosis and no apparent cardiac complications. Arterial Closure: TR band Procedure course complicated by asymptomatic, hemodynamically stable SVT and later atrial fibrillation with RVR which began during initial left heart catheterization. Treated with adenosine x1, Lopressor x2, diltiazem. A. fib persisted during case but adequately rate controlled. Summary: 1. Multivessel coronary artery disease 100% acute mid first diagonal occlusion -70 to 80% earlymid LAD 40% proximal RCA 2. Mildly elevated intracardiac filling pressure 3. Intraprocedure atrial fibrillation with RVR 4. Successful PCI of proximal to mid LAD with single drug-eluting stent (3.5 x 26 mm [place]; postdilated with 4.5 NC). 5. Successful PCI of mid D1 occlusion with single drug-eluting stent (2.25 x 15 mm Krzysztof). Recommendations: To PCU for continued monitoring, serial troponins and echocardiogram Loaded with ticagrelor 180 mg in Equipment Maintenance Technician Continue dual-antiplatelet therapy for at least 1 year Continue statin, and ASCVD risk factor modification Consult cardiac Rehab Rate control for atrial fibrillation, started on metoprolol. Will hold off on anticoagulation at this time. Reconsider if persists Hemodynamics Rest Ao:: 118/87/108 Final Ao: 98/75/86 LV: 98/19 Recommendations Recommendations: PCI without planned CABG Specimens Specimens: None Radiation Exposure (mGy) 4832 Contrast (mls) 160 Anesthesia Moderate 1190-9027 Procedural Complication(s) None Disposition PCU I attest to the content of the Intraoperative Record and any orders documented therein. Any exceptions are noted below. [facility] Card Cath Procedure Codes Cardiac Catheterization Procedure 1: Cardiovascular Cath Procedures: 90256 Coronaries and LHC (+/-LV) Therapeutic Services & Ancillary Procedure 1: Cardiovascular Tx and Anc Procedures: 80437 IV Ultrasound (Coronary or Graft) Moderate Sedation Procedure 1: Sedation/Anesthesia: 43353 Mod Sedation by the same physician;Init15 Min Child Age 5 & Up Procedure 2: Sedation/Anesthesia: 08860 Mod Sedation by the same physician; Ea [id number] Minutes Stenting Procedure 1: Cardiovascular Stent Procedures: 70403 Perc transluminal revascularization of acute sub/total occl, aMI PG Care Time/CCT Total # of Minutes Spent Total Time Spent with Patient: Total time spent is greater than 50% in coordination of care (as documented) at patient's floor/unit and/or counseling patient:
[2022-01-30] MEDS: METOPROLOL TARTRATE 25 MG TAB PO SCH ×2 (10:31→20:11)
[2022-01-30] MEDS: ROSUVASTATIN CALCIUM 20 MG TAB PO SCH (10:31)
[2022-01-30] MEDS: ASPIRIN 81 MG ECTAB PO SCH (11:22)
--- NOTE | 2022-01-30 13:32 | Hospitalist Progress Note ---
Date of Service January 30, 2022 Assessment & Plan (1) Chest pain: Plan: 51yo male with history of HTN, HLP, tobacco use and family history of CAD in father (in late 50's) presents with sharp, substernal chest pain with associated nausea/lightheadedness and diaphoresis. Found with dynamic EKG changes predominantly in lateral leads. Initial troponin is elevated at 44.5. Patient had 2 drug-eluting stents placed in his mid left coronary artery 1 in the 1st diagonal -Post catheterization treatment per Cardiology -Trend troponin -Check HgbA1C, lipid panel -Initiate ASA -Check 2D echo Patient requested Chantix for smoking cessation after counseling on my visit this morning (2) Hypertension: Plan: Resume home losartan starting metoprolol (3) Hyperlipidemia: Plan: Patient with reported history of HLP. He is prescribed Crestor which will be reordered for him -Will check Lipid panel (4) Smoker: Plan: Active smoker. -Cessation counseling ordered Patient also reports he drinks approximately 1/5 of liquor per week. States he does not have any issues when he stops drinking never has had shakes or withdrawal Code - Full Code per discussion with patient Admission and Anticipated Discharge Date Admission Date: January 30, 2022 Subjective Patient was seen after returning from cardiac Instructional Design Specialist where he had 2 stents 1 in his LAD 1 his diagonal 1. He is pain-free his cath entrance site on his right wrist is without discomfort. We talked about smoking cessation he wishes for Chantix at the time of discharge Also talked about lifestyle changes and medication changes that are upcoming with his recent NSTEMI Review of Systems Review of Systems: Mild distress and fatigue no headache, no visual changes no speech or swallowing issues Resolution of chest pain, no pressure or palpitations no shortness of breath, cough or wheezes no abdominal pain, nausea or vomiting, diarrhea or constipation no dysuria, hematuria or frequency no focal joint pain or swelling no back pain, CVA tenderness or radicular pain no bruising, bleeding or rashes no focal signs of weakness or numbness or altered sensation no complaints of anxiety or depression.. Physical Exam Physical Exam: The patient appeared well nourished and normally developed. Vital signs as documented. Head exam is normocephalic atraumatic Neck is without JVD, thyromegaly, or carotid bruits. Lungs are clear to auscultation, no focal loss of breath sounds Cardiac exam, Rhythm is regular.. No murmurs, rubs or gallops. Abdominal exam reveals normal bowel sounds, soft non tender, no masses Extremities are nonedematous and both pedal pulses are present Neurologic exam is alert and oriented, no focal loss of strength or sensation Skin is with catheterization entrance site is clean dry and intact he has good distal pulses and capillary refill of his right hand Psychologically is without concerns for anxiety or depression.. Results & Data Results & Data ([facility]) Vital Signs (Past 12 Hours) Vital Signs Temp Pulse Pulse Resp BP BP BP 01/30/22 12:16 97.5 F L 106 H 18 122/84 01/30/22 10:30 82 18 125/82 01/30/22 10:00 90 20 116/69 01/30/22 09:30 60 18 117/74 01/30/22 09:00 90 20 113/76 01/30/22 08:45 78 18 110/71 01/30/22 08:30 97.7 F 89 18 101/77 01/30/22 08:30 97.7 F 89 18 101/77 01/30/22 07:54 126 H 157/87 H 01/30/22 06:34 01/30/22 06:07 62 18 132/84 01/30/22 06:03 68 16 115/81 01/30/22 05:30 62 15 109/76 01/30/22 05:16 65 13 113/75 01/30/22 04:55 67 13 119/85 01/30/22 04:32 77 19 108/80 01/30/22 04:32 01/30/22 04:19 98.1 F 68 17 126/75 Pulse Ox O2 Del Method O2 Flow Rate 01/30/22 12:16 95 Room Air 01/30/22 10:30 98 Room Air 01/30/22 10:00 94 Room Air 01/30/22 09:30 94 Room Air 01/30/22 09:00 92 Room Air 01/30/22 08:45 93 Room Air 01/30/22 08:30 94 Room Air 01/30/22 08:30 94 Room Air 01/30/22 07:54 01/30/22 06:34 Room Air 01/30/22 06:07 97 Nasal Cannula 2 01/30/22 06:03 96 Nasal Cannula 2 01/30/22 05:30 97 Room Air 01/30/22 05:16 96 Nasal Cannula 2 01/30/22 04:55 95 Nasal Cannula 2 01/30/22 04:32 96 Room Air 01/30/22 04:32 Room Air 01/30/22 04:19 94 Room Air PG Care Time/CCT Total # of Minutes Spent Total Time Spent with Patient: Total time spent is greater than 50% in coordination of care (as documented) at patient's floor/unit and/or counseling patient: Coding Level of Care Code None Diagnoses Chest pain R07.9 Hypertension I10 Hyperlipidemia E78.5 Smoker F17.200
[2022-01-30] MEDS ORDERED: METOPROLOL TARTRATE 1 MG/ML VIAL IV PRN (17:09)
[2022-01-30] MEDS ORDERED: MAGNESIUM SULFATE / D5W 1 GM/100 ML BAG IV ONE (17:09)
[2022-01-30] MEDS ORDERED: LORazepam 0.5 MG TAB PO STA (17:18)
[2022-01-30] MEDS ORDERED: LORazepam 0.5 MG TAB PO PRN (17:18)
--- NOTE | 2022-01-30 19:25 | XCELERA ---
[id number]
[2022-01-30] MEDS: ERYTHROMYCIN OP OINT 5 MG/GM 3.5 GM TUBE OP SCH (20:10)
[2022-01-30] MEDS: TICAGRELOR 90 MG TAB PO SCH (20:11)
[2022-01-31 05:06] LABS: Basophils # (auto) 0.03 K/uL (0-0.2); Basophils % (auto) 0.4 %; Eosinophils # (auto) 0.17 K/uL (0-0.50); Eosinophils % (auto) 2.3 %; Hematocrit (blood only) 42.5 % (40.1-51.0); Hemoglobin 14.7 g/dl (14.0-18.0); Immature Granulocytes # (auto) 0.02 K/uL (0.00-0.02); Immature Granulocytes % (auto) 0.3 %; Lymphocytes # (auto) 1.96 K/uL (1.2-3.4); Lymphocytes % (auto) 26.2 %; Mean Corpuscular Hgb Conc 34.6 g/dL (32.0-36.0); Mean Corpuscular Volume 89.7 fL (80.0-100.0); Mean Platelet Volume 10.6 fL (9.4-12.4); Monocytes # (auto) 0.62 K/uL (0.24-0.82); Monocytes % (auto) 8.3 %; Neutrophils # (auto) 4.68 K/uL (1.4-6.5); Neutrophils % (auto) 62.5 %; Platelet Count 205 K/uL (130-400); RDW Coefficient of Variation 12.2 % (11.5-14.5); RDW Standard Deviation 40.3 fL (36.4-46.3); Red Blood Count 4.74 M/uL (4.63-6.08); White Blood Count 7.48 K/ul (4.8-10.8)
[2022-01-31] MEDS ORDERED: NICOTINE POLACRILEX 2 MG GUM MT PRN (05:50)
--- NOTE | 2022-01-31 05:52 | Communication Note ---
Date of Service: January 31, 2022 Informed by nurse that patient was attempting to go to elevator to go smoke. Ordering prn nicotine gum and nicotine patch (to start at 9AM).
[2022-01-31 05:53] LABS: BUN Creatinine Ratio 9.6 (10-20); Calcium 9.1 mg/dl (8.5-10.1); Creatinine Clr Calc Pharmacy 100.5 ml/min; Est GFR (African American) 85.8 ml/min; Est GFR (Non-African American) 74.1 ml/min; Potassium 3.9 mmol/L (3.5-5.1)
[2022-01-31] MEDS: NICOTINE 21 MG/24 HR TDSY TD SCH (06:17)
[2022-01-31] MEDS: ASPIRIN 81 MG ECTAB PO SCH (09:20)
[2022-01-31] MEDS: METOPROLOL TARTRATE 25 MG TAB PO SCH (09:20)
[2022-01-31] MEDS: TICAGRELOR 90 MG TAB PO SCH ×2 (09:20→20:10)
[2022-01-31] MEDS: OLMESARTAN MEDOXOMIL 20 MG TAB PO SCH (09:21)
[2022-01-31] MEDS: ROSUVASTATIN CALCIUM 20 MG TAB PO SCH (09:21)
[2022-01-31] MEDS: ERYTHROMYCIN OP OINT 5 MG/GM 3.5 GM TUBE OP SCH ×2 (09:36→20:09)
[2022-01-31] MEDS ORDERED: METOPROLOL TARTRATE 25 MG TAB PO ONE (12:23)
--- NOTE | 2022-01-31 12:23 | Cardiology Progress Note ---
Date of Service January 31, 2022 Assessment & Plan (1) CAD (coronary artery disease): Plan: Occluded D1 post ISAI 75% mid LAD post ISAI 40% proximal RCA 2. Preserved LV functionEF 50 to 55%, lateral wall motion abnormality 3. Atrial fibrillation with RVR 4. Hypertension 5. Dyslipidemia 6. Tobacco abuse 7. Mildly dilated aortic root4.4 cm Patient chest pain-free. Hemodynamically stable. No access to complications. No signs of heart failure exam. Remains in atrial fibrillation with RVR, asymptomatic. Recommend additional rate control and anticoagulation. Trend troponin until peak Additional 25 mg metoprolol now, increase to 50 mg twice daily Start Eliquis 5 mg twice daily Transition to clopidogrel tomorrow morning, load with 300 mg in a.m. Stop aspirin Continue ARB, statin Stressed smoking cessation Interested in cardiac rehab Monitor on telemetry overnight. Assuming adequate rate control, likely discharge in morning on dual therapy with clopidogrel, Eliquis. Follow-up with me in 1 to 2 weeks. If A. fib persists would plan for cardioversion after 4 weeks of anticoagulation Admission and Anticipated Discharge Date Admission Date: January 30, 2022 Subjective Feeling well this morning. Reports brief (seconds) of chest discomfort, nothing like what brought him in. Reported shortness of breath lying on left side. No shortness of breath Flat. No palpitations or presyncope. Telemetry reviewedremains in atrial fibrillation with heart rates primarily in the 100s up to 120s, did have 5-second pause overnight. Review of Systems Review of Systems: All systems reviewed & are unremarkable except as noted in HPI & below Physical Exam Physical Exam: General: Comfortable HEENT: Sclerae anicteric Lungs: Clear anteriorly Cardiac: Distant heart sounds, irregular irregular Vascular: Right radial artery access site with no ecchymosis, hematoma. Distal pulse and sensation intact. Abdomen: Soft, nontender Extremities: Well perfused, no peripheral edema Neuro: Nonfocal Psych: Alert orient x3, normal affect and mood Results & Data ([facility]) Vital Signs (Past 12 Hours) Vital Signs Temp Pulse Pulse Resp BP Pulse Ox O2 Del Method 01/31/22 12:05 98.1 F 101 H 18 118/73 95 Room Air 01/31/22 07:53 98.1 F 93 H 18 125/86 94 Room Air 01/31/22 02:54 97.9 F 99 H 18 109/59 L 94 Room Air 01/31/22 00:37 88 PG Care Time/CCT Total # of Minutes Spent Total Time Spent with Patient: Total time spent is greater than 50% in coordination of care (as documented) at patient's floor/unit and/or counseling patient: Coding Level of Care Code 60950 Subseq Hosp Care Lvl 3 Diagnoses CAD (coronary artery disease) I25.10
[2022-01-31 12:51] LABS: Estimated Average Glucose 108 mg/dl; Hemoglobin A1C 5.4 % (4.5-5.6)
[2022-01-31] MEDS: APIXABAN 5 MG TABLET PO SCH ×2 (13:20→20:08)
--- NOTE | 2022-01-31 14:27 | Hospitalist Progress Note ---
Date of Service January 31, 2022 Assessment & Plan (1) Chest pain: Plan: 51yo male with history of HTN, HLP, tobacco use and family history of CAD in father (in late 50's) presents with sharp, substernal chest pain with associated nausea/lightheadedness and diaphoresis. Found with dynamic EKG changes predominantly in lateral leads. Initial troponin is elevated at 44.5. Patient had 2 drug-eluting stents placed in his mid left coronary artery 1 in the 1st diagonal -Post catheterization treatment per Cardiology initially dual antiplatelet agents high intensity statin beta-antonio however with persistent atrial fibrillation will now transition to adding apixaban likely will go home on apixaban and Plavix but will await cardiology's final determination -Trend troponin, has escalated with still not peaked. The degree of escalation will consider diagnosis of NSTEMI - HgbA1C 5.4 ,-lipid panel total cholesterol 199 LDL 116 HDL 33 -Check 2D echo ejection fraction preserved at 50-55% some inferior wall hypokinesis of the mid lateral wall seen in left ventricle Patient requested Chantix for smoking cessation after counseling on my visit this morning (2) Atrial fibrillation: Plan: Post procedure defibrillation has ensued and persisted throughout the night despite beta blockers and magnesium, likely patient will go home on a anticoagulant he was started on Eliquis here in the hospital (3) Hypertension: Plan: Resume home losartan starting metoprolol, dose increased due to atrial fibrillation (4) Hyperlipidemia: Plan: Patient with reported history of HLP. He is prescribed Crestor which will be reordered for him -Will check Lipid panel (5) Smoker: Plan: Active smoker. -Cessation counseling ordered Patient also reports he drinks approximately 1/5 of liquor per week. States he does not have any issues when he stops drinking never has had shakes or withdrawal Code - Full Code per discussion with patient Admission and Anticipated Discharge Date Admission Date: January 30, 2022 Subjective Patient told me he feels well this morning he did have some issues with nicotine withdrawal and requested nicotine patch and requests Chantix at time of discharge. He remains in atrial fibrillation with rates around 100. His troponin is also escalated we are still waiting for it to peak. He was seen by cardiology who request another day we will start anticoagulation given his persistent atrial fibrillation and likely reduced to anticoagulation +1 antiplatelet agent Telemetry atrial fibrillation with heart rates primarily in the 100s up to 120s, did have 5-second pause overnight. Review of Systems Review of Systems: Mild distress and fatigue no headache, no visual changes no speech or swallowing issues Resolution of chest pain, no pressure or palpitations no shortness of breath, cough or wheezes no abdominal pain, nausea or vomiting, diarrhea or constipation no dysuria, hematuria or frequency Right wrist access site is clean dry and intact with good sensation and warmth no back pain, CVA tenderness or radicular pain no bruising, bleeding or rashes no focal signs of weakness or numbness or altered sensation no complaints of anxiety or depression.. Physical Exam Physical Exam: The patient appeared well nourished and normally developed. Vital signs as documented. Head exam is normocephalic atraumatic Neck is without JVD, thyromegaly, or carotid bruits. Lungs are clear to auscultation, no focal loss of breath sounds Cardiac exam, Rhythm is regular.. No murmurs, rubs or gallops. Abdominal exam reveals normal bowel sounds, soft non tender, no masses Extremities without edema bilaterally Neurologic exam is alert and oriented, no focal loss of strength or sensation Skin is with catheterization entrance site is clean dry and intact he has good distal pulses and capillary refill of his right hand Psychologically is without concerns for anxiety or depression.. Results & Data Results & Data ([facility]) Vital Signs (Past 12 Hours) Vital Signs Temp Pulse Pulse Resp BP Pulse Ox O2 Del Method 01/31/22 08:00 78 01/31/22 12:05 98.1 F 101 H 18 118/73 95 Room Air 01/31/22 07:53 98.1 F 93 H 18 125/86 94 Room Air 01/31/22 02:54 97.9 F 99 H 18 109/59 L 94 Room Air PG Care Time/CCT Total # of Minutes Spent Total Time Spent with Patient: Total time spent is greater than 50% in coordination of care (as documented) at patient's floor/unit and/or counseling patient: Coding Level of Care Code 82966 Subseq Hosp Care Lvl 3 Diagnoses Chest pain R07.9 Atrial fibrillation I48.91 Hypertension I10 Hyperlipidemia E78.5 Smoker F17.200
[2022-01-31] MEDS: METOPROLOL TARTRATE 50 MG TAB PO SCH (20:08)
--- NOTE | 2022-01-31 21:44 | Electrocardiogram Report ---
Test Reason : Blood Pressure : / mmHG Vent. Rate : 081 BPM Atrial Rate : 258 BPM P-R Int : 000 ms QRS Dur : 104 ms QT Int : 356 ms P-R-T Axes : 000 056 043 degrees QTc Int : 413 ms Atrial fibrillation Anterolateral ST elevation Abnormal ECG When compared with ECG of 30-JAN-2022 05:43, Atrial fibrillation has replaced Sinus rhythm ST more elevated in Anterolateral leads T wave inversion no longer evident in Inferior leads Confirmed by Irvin Segovia ([id number]) on 01/31/2022 9:43:51 PM Referred By: REFERRED SELF Confirmed By:Irvin Segovia
[2022-02-01 06:38] LABS: Basophils # (auto) 0.03 K/uL (0-0.2); Basophils % (auto) 0.4 %; Eosinophils # (auto) 0.19 K/uL (0-0.50); Eosinophils % (auto) 2.3 %; Hematocrit (blood only) 44.3 % (40.1-51.0); Hemoglobin 15.2 g/dl (14.0-18.0); Immature Granulocytes # (auto) 0.03 K/uL (0.00-0.02); Immature Granulocytes % (auto) 0.4 %; Lymphocytes # (auto) 2.28 K/uL (1.2-3.4); Lymphocytes % (auto) 27.5 %; Mean Corpuscular Hemoglobin 30.8 pg (25.0-34.0); Mean Corpuscular Hgb Conc 34.3 g/dL (32.0-36.0); Mean Corpuscular Volume 89.9 fL (80.0-100.0); Mean Platelet Volume 10.8 fL (9.4-12.4); Monocytes # (auto) 0.92 K/uL (0.24-0.82); Monocytes % (auto) 11.1 %; Neutrophils # (auto) 4.83 K/uL (1.4-6.5); Neutrophils % (auto) 58.3 %; Platelet Count 221 K/uL (130-400); RDW Coefficient of Variation 12.2 % (11.5-14.5); RDW Standard Deviation 40.2 fL (36.4-46.3); Red Blood Count 4.93 M/uL (4.63-6.08); White Blood Count 8.28 K/ul (4.8-10.8)
[2022-02-01 07:00] LABS: BUN Creatinine Ratio 10.9 (10-20); Calcium 9.4 mg/dl (8.5-10.1); Creatinine Clr Calc Pharmacy 104.4 ml/min; Est GFR (African American) 89.6 ml/min; Est GFR (Non-African American) 77.3 ml/min; Potassium 3.9 mmol/L (3.5-5.1)
[2022-02-01] MEDS ORDERED: CLOPIDOGREL BISULFATE 300 MG TAB PO ONE (08:00)
[2022-02-01] MEDS: ROSUVASTATIN CALCIUM 20 MG TAB PO SCH (09:09)
[2022-02-01] MEDS: APIXABAN 5 MG TABLET PO SCH (09:09)
[2022-02-01] MEDS: OLMESARTAN MEDOXOMIL 20 MG TAB PO SCH (09:09)
[2022-02-01] MEDS: METOPROLOL TARTRATE 50 MG TAB PO SCH (09:09)
[2022-02-01] MEDS: NICOTINE 21 MG/24 HR TDSY TD SCH (09:10)
[2022-02-01] MEDS: ERYTHROMYCIN OP OINT 5 MG/GM 3.5 GM TUBE OP SCH (09:10)
--- NOTE | 2022-02-01 09:58 | Cardiology Progress Note ---
Date of Service February 01, 2022 Assessment & Plan (1) CAD (coronary artery disease): Plan: Occluded D1 post ISAI 75% mid LAD post ISAI 40% proximal RCA 2. Preserved LV functionEF 50 to 55%, lateral wall motion abnormality 3. Atrial fibrillation with RVR 4. Hypertension 5. Dyslipidemia 6. Tobacco abuse 7. Mildly dilated aortic root4.4 cm Patient chest pain-free, Hstrop down trending. Hemodynamically stable. No access to complications. No signs of heart failure exam. Remains in atrial fibrillation with RVR, asymptomatic. Rate control borderline. From a cardiac standpoint OK with discharge today. Will arrange for f/up with me on Monday. -- Home on Eliquis 5mg BID, clopidogrel 75mg daily -- Increase metoprolol to 75mg BID Continue ARB, statin Interested in smoking cessation, cardiac rehab If A. fib persists as an outpatient will consider cardioversion. Admission and Anticipated Discharge Date Admission Date: January 30, 2022 Subjective Feeling well this morning. Last night felt palpitations, dizziness when lying flat before bedtime, improved with Ativan. Symptoms better this morning. Up walking around room without chest pain. No other new concerns. tele reviewed -- remains in AF HR in 90s overnight, 100-110s this morning. Review of Systems Review of Systems: All systems reviewed & are unremarkable except as noted in HPI & below Physical Exam Physical Exam: General: Comfortable HEENT: Sclerae anicteric Lungs: Clear anteriorly Cardiac: Distant heart sounds, irregular irregular Vascular: Right radial artery access site with no ecchymosis, hematoma. Distal pulse and sensation intact. Abdomen: Soft, nontender Extremities: Well perfused, no peripheral edema Neuro: Nonfocal Psych: Alert orient x3, normal affect and mood Results & Data ([facility]) Vital Signs (Past 12 Hours) Vital Signs Temp Pulse Pulse Resp BP Pulse Ox O2 Del Method 02/01/22 07:26 97.5 F L 93 H 18 111/73 97 Room Air 02/01/22 04:40 97.5 F L 94 H 17 95/70 L 93 Room Air 01/31/22 22:18 91 H 01/31/22 22:53 97.7 F 96 H 18 105/78 93 PG Care Time/CCT Total # of Minutes Spent Total Time Spent with Patient: Total time spent is greater than 50% in coordination of care (as documented) at patient's floor/unit and/or counseling patient: Coding Level of Care Code 22783 Subseq Hosp Care Lvl 3 Diagnoses CAD (coronary artery disease) I25.10
--- NOTE | 2022-02-01 13:10 | Discharge Summary ---
Date of Service date of admission - January 30, 2022 date of discharge - February 01, 2022 Admission HPI Per Admitting Provider Soham Palacio is a 51yo male with history of HTN, HLP, Obesity (BMI=37.7), tobacco abuse and FHx of CAD (Father in late 50's with CAD) presenting with chest pain. Patient was in his usual state of health until he woke from sleep at 02:00 with sharp, substernal chest pain with some belching. He thought the discomfort may be secondary to indigestion. He drank some water and took 2 Ibuprofen with some relief. The pain then returned with some diaphoresis and lightheadedness, radiation to the jaw and bilateral shoulders, more severe. He also felt dizzy and nauseous with one episode of non-bloody vomiting. He checked [employer] and called EMS due to concern for [place]. He was provided Nitro and ASA 324mg by EMS with some improvement in chest discomfort. Upon arrival to the ER he was afebrile, HD stable. EKG with dynamic changes in the lateral leads - I and aVL. He was provided with Fentanyl, Nitropaste - still with some chest pain, now 04/19. Code Heart was activated secondary to dynamic EKG changes, persistence of chest pain. Patient has been taken to the label tacker. Further information forthcoming. ER Course: Fentanyl 50mcg x 2 doses, Zofran 4mg, Nitro 1 inch, Morphine 4mg IV Principal Diagnosis NSTEMI New-onset atrial fibrillation Discharge Exam gen - NAD, obese neck - no JVD mouth - MMM heart - irregular, s1 s2, no murmur lungs - CTA b/l abd - soft NT ND BS+ ext - no edema vascular - right radial pulse 2+, no hematoma, no aneurysm, no bruising Discharge Data Allergies Allergy/AdvReac Type Severity Reaction Status Date / Time No Known Drug Allergies Allergy Verified 02/04/22 14:43 Consultations Cardiac Rehabilitation Cardiology - Jay Pedroza MD Procedures Performed Operation Date: 01/30/22 06:30 Actual Procedures p Cineradiography w/Routine Exam - Jay Pedroza MD p Cath, Left with Cors and Vent - Jay Pedroza MD p Aspiration/PCI w/ISAI for Stemi - Jay Pedroza MD s IVUS Coronary Single Vessel - Jay Pedroza MD Findings: LM -normal caliber, no significant disease LAD -medium caliber, 70 to 80% earlymid stenosis just after takeoff of D1. Remainder of mid segment, distal vessel without significant disease and wraps around apex. Medium D1 100% occluded at branch point in mid vessel (initially not appreciated). Circumflex -medium caliber, 20 to 30% distal disease. Left PLB without significant disease. RCA -dominant, large caliber, angulated proximal segment (krueger's crook) with 40% stenosis, 30% mid segment disease. Distal vessel without significant disease. Large PDA without disease. LVEDP -19 Procedure course complicated by asymptomatic, hemodynamically stable SVT and later atrial fibrillation with RVR which began during initial left heart catheterization. Treated with adenosine x1, Lopressor x2, diltiazem. A. fib persisted during case but adequately rate controlled. Summary: 1. Multivessel coronary artery disease * 100% acute mid first diagonal occlusion * 70 to 80% earlymid LAD * 40% proximal RCA 2. Mildly elevated intracardiac filling pressure 3. Intraprocedure atrial fibrillation with RVR 4. Successful PCI of proximal to mid LAD with single drug-eluting stent (3.5 x 26 mm [place]; postdilated with 4.5 NC). 5. Successful PCI of mid D1 occlusion with single drug-eluting stent (2.25 x 15 mm [place]). Echocardiogram: * EF 50-55% * mild hypokinesis of the mid lateral wall * mild aortic root dilatation - 4.4cm * no significant valvular pathology Ordered Studies Chest X-Ray 01/30/22 04:32 SINGLE VIEW CHEST CLINICAL HISTORY: Atypical chest pain. FINDINGS: An AP, portable, upright chest radiograph is compared to study dated 01/29/2019. The heart is mildly enlarged. The pulmonary vasculature is not congested. Atelectasis is noted at the lung bases. The lungs and pleural spaces are otherwise clear. No pneumothorax is seen. The bony thorax is grossly intact. IMPRESSION: Moderate cardiomegaly with no acute cardiopulmonary abnormality hola ntified. ACT 112: Negative or not required by law. Electronically signed by: Nathan Hammond M.D. 01/30/2022 7:22 AM Hospital Course (1) NSTEMI (non-ST elevated myocardial infarction): Patient presented with sharp, substernal chest pain. Initial EKG with dynamic lateral ST changes in I/AVL highly concerning for ACS. Initial troponin 44.5. Patient was taken emergently to the cardiac catheterization lab by Dr Jay Pedroza. This revealed 100% acute mid first diagonal occlusion, a 70-80% early LAD lesion, and a 40% proximal RCA lesion. He underwent ISAI to the first diagonal lesion as well as the early LAD lesion. During the cath he developed SVT followed by a.fib with RVR. Post-intervention he was admitted to the telemetry unit. Peak troponin was 10,422. Echo showed EF 50-55% with lateral wall hypokinesis. HgbA1C 5.4% Lipid panel showed the following -- total cholesterol 199; LDL 116; HDL 33; triglycerides of 360. He was initiated on beta antonio, effient, crestor was increased to 40mg/day, and ARB was continued. He was ultimately started on Eliquis for his a.fib. Beta antonio was titrated for rate control of his a.fib. He had no further chest pain. He remained hemodynamically stable. He was counseled on the importance of smoking cessation. Final discharge cardiac medication list - * crestor 40mg daily * plavix 75mg daily * eliquis 5mg BID * nitro SL prn * metoprolol tartrate 50mg BID * olmesartan 20mg daily He will f/u with [facility] Cardiology shortly after discharge. He will be referred to cardiac rehab in the near-future as well. (2) CAD (coronary artery disease): s/p cardiac catheterization by Dr Pedroza with the following - 100% acute mid first diagonal occlusion -70 to 80% earlymid LAD 40% proximal RCA See #1 above for additional details. (3) Atrial fibrillation: Developed such during his heart catheterization. Started on beta blockers and anticoagulation with Eliquis. Rates were acceptable by time of discharge with metoprolol 50mg BID and Eliquis 5mg BID. (4) Hypertension: He will continue olmesartan but HCTZ has been stopped. Metoprolol initiated while here. (5) Hyperlipidemia: Lipids as in #1 above. Crestor was increased to 40mg/day during the stay. He may need a dedicated agent for low HDL and high triglycerides. (6) Smoker: Nicoderm patch 21mg/day was used during the stay and prescribed at discharge. He will speak with his PCP about other smoking cessation options including wellbutrin or Chantix. He understands the importance of smoking cessation. (7) Aortic root dilatation: Aortic root was 4.4cm on echocardiogram. He was counseled on the significance of this finding. Smoking cessation needed. Strict BP control needed. Surveillance will be needed with echo and/or CTA chest moving forward. Total Time Total Time Spent Total Time Spent (In Minutes): 50 Discharge Plan Discharge Items Patient Disposition: Home - Self-Care Reason For Visit: chest pain Discharge Diagnosis: 1. chest pain due to heart attack 2. atrial fibrillation 3. mild aortic root dilatation - yearly follow-up CT scan or echocardiogram needed to follow this Activity: Per Instructions section Sexual Activity: Wait until after follow-up appointment Exercise/Sports: Wait until after follow-up appointment Non-emergency contact: Primary Care Provider and Hospital Fellow Call non-emergency contact if: you have any medication questions, your symptoms worsen, your wound has increased redness, your wound has increased drainage and your wound pain has increased Follow-up/Referrals: Clay Pedroza MD [Physician] - 02/07/22 2:30 pm Fili Gao DO [Primary Care Provider] - Diet: Heart Healthy Add Attending Provider Instructions: Mr Palacio, You were hospitalized for a heart attack after presenting with chest pain. Dr Jay Pedroza from the [facility] Cardiology team took you emergently to the heart catheterization lab and found significant coronary artery disease. He placed 2 stents across 2 different blockages in the coronary arteries of your heart. During your procedure you developed an irregular heart rhythm called atrial fibrillation ("a.fib") - see handout. The a.fib has been controlled with various medications during your stay. Recommendations - 1. coronary artery disease - please take the following medications for your heart: * metoprolol 50mg twice daily every day; this medication is also for your a.fib * olmesartan 20mg once daily every day * rosuvastatin 40mg once daily every day; this is for high cholesterol * clopidogrel 75mg once daily every day; this is to keep your stents from clogging 2. Blood thinner medication - * apixaban (Eliquis) 5mg twice daily every day; this is for your a.fib and to reduce your risk of stroke from a.fib * Eliquis is an anticoagulant - also know as a "blood thinner" Call your Primary Care doctor or [employer] consultant if you experience any of the following: * Chest Pain * Sudden Shortness of Breath * Rapid or pounding heart beat * Fainting * Dizziness * Cough with blood or bloody sputum * Sweating more than normal * Bruises * Heavy or uncontrolled bleeding * Blood in your urine, stool or vomit * Black or tarry stools * Heavy nose bleeding 3. Nitroglycerin tablets - for emergency purposes if you experience chest pain, shortness of breath, sweating, nausea, etc - any symptom that reminds you of your heart attack pain. Keep this bottle with you at all times. 4. Please purchase a blood pressure cuff for your home. That way you can check your blood pressure and heart rate a couple of times each day. I would recommend a cuff that goes on your upper arm rather than the wrist region. Ideally your heart rates at home are less than 100 most times you check it, and your systolic blood pressure (top number) is less than 120. 5. See instructions below regarding your recent heart catheterization. 6. I have prescribed nicoderm patches to you. Place one on your skin and change every 24 hours. If you resume smoking please stop the nicoderm patch right away. Please talk to your family doctor about ways to help you quit smoking. 7. Please continue the eye ointment and any other prescriptions Dr Cordero re commended from your recent minor procedure with her. 8. Finally, the aortic root - which is the first portion of the aorta as it comes off the heart - is mildly enlarged/dilated. Tobacco use, high blood pressure, etc all contribute to this. You will need ongoing surveillance of this problem. Follow-up - see separate section Return to [facility] if - * you have to take any nitroglycerin tablets * you have shortness of breath or chest pain * you have any concerns about your right wrist where the heart catheterization was performed * any other concerns It was our pleasure to care for you at [facility]! Dr Tena Addtl Airworthiness Safety Inspector Provider Instructions: ACTIVITY RECOMMENDATIONS following your heart catheterization - It is common to feel weak and fatigue for several days after a heart event. * Do not drive or operate any motorized equipment for the next three days. * Limit stair usage (2 or 3 trips a day only) for the next three days. * Do not lift anything heavier than 10 pounds for the next three days - especially with the right arm/hand. * Do not engage in vigorous exercise or any sports until cleared by cardiology. * You may shower the day after your procedure, but do not immerse the area for three days. Cleanse the site gently with soap and water. SPECIAL CARE INSTRUCTIONS: * You may replace the pressure dressing or band-aid the morning after the procedure. * After your procedure, it is normal to have a small bruise or small lump at the site. Examine your site daily for any change in the bruise or lump, redness, swelling, drainage or numbness. Notify your doctor if any change. BLEEDING: * If there is a small amount of bleeding at the site, lie down and apply firm pressure with a clean cloth for ten minutes. When the bleeding stops, lie quietly keeping the procedure limb straight for six hours. Notify your doctor as soon as possible. * If the bleeding does not stop after ten minutes or if there is a large amount of bleeding or spurting, call 911 immediately. Continue to lie down and hold firm pressure until help arrives. SKIN IRRITATION: * You may experience some redness and/or swelling in the area where radiation was administered. If any skin irritation occurs, please contact your family physician. Additional instructions following your heart attack - Home Care: * Take your medications exactly as directed. Don't skip doses. * Remember that recovery after a heart attack takes time. Plan to rest for at lease 4-8 weeks while you recover. Then return to normal activity when your doctor says it's okay. * Ask your doctor about joining a heart rehabilitation program. * Tell your doctor if you are feeling depressed. Feelings of sadness are common after a heart attack, but it is important that you speak to someone if you are feeling overwhelmed by these feelings. * If you are having chest pain, call 911 for an ambulance. Do NOT drive yourself to the hospital. * Ask your family members to learn CPR. * Learn to take your own blood pressure and pulse. Keep a record of your results. Ask your doctor when you should seek emergency medical attention. He or she will tell you which blood pressure reading is dangerous. Lifestyle Changes: * Maintain a healthy weight. Get help to lose any extra pounds. * Cut back on salt. * Limit canned, dried, packaged, and fast foods. * Don't add salt to your food. * Season foods with herbs instead of salt when you cook. * Break the smoking habit. Enroll in a stop-smoking program to improve your chances of success. * Limit fatty foods. * Ask your doctor about having your lipid levels checked regularly. * Build up your activity according to your doctor's recommendation. * Ask your doctor when it's okay to resume sexual activity. * Tell your doctor about any erectile dysfunction (ED) medication you are taking. Some ED medications are not safe if you take certain heart medications. * Try to manage stress. Follow Up: It is important for you to keep your follow up appointments with your medical provider. Pending Studies at Discharge: No Stand-Alone Forms: My [facility], Work/School Release, Smoking Cessation Medications and DC Order Prescriptions: New Eliquis 5 mg Tablet 5 mg PO BID Qty: 60 5RF clopidogrel 75 mg Tablet 75 mg PO QAM Qty: 30 5RF nicotine [Nicoderm CQ] 21 mg/24 hr Patch 24 Hour 21 mg transdermal QAM Qty: 30 0RF metoprolol tartrate 50 mg Tablet 50 mg PO BID Qty: 60 5RF olmesartan 20 mg Tablet 20 mg PO QAM Qty: 30 5RF nitroglycerin 0.4 mg tablet, sublingual 0.4 mg sublingual Q5M PRN (Reason: chest pain) Qty: 1 0RF Rx Instructions: max 3 tabs in 15 minutes. Continued erythromycin 5 mg/gram (0.5 %) ointment 0.5 inch ophthalmic (eye) BID Qty: 3.5 0RF Rx Instructions: apply to right lower eyelid incision after surgery Changed rosuvastatin 40 mg tablet 40 mg PO DAILY Qty: 30 5RF Discontinued olmesartan-hydrochlorothiazide 20-12.5 mg tablet 1 tab PO DAILY Qty: 30 2RF No Action varenicline 0.5 mg (11)- 1 mg (42) tablets,dose pack See Rx Instructions PO DAILY Qty: 53 0RF Rx Instructions: Day1-3 0.5mg daily, Day4-7 0.5mg BID, then 1mg BID daily Discharge Orders: Discharge Order (Routine); Ordered 02/01/22 Ordered By: Omari Oates/Other Patient Handouts: CAD, Eating Heart-Healthy Foods, ED Atrial Fibrillation Admission Data Admit Date/Time: 01/30/22 08:30 Attending Provider: Omari Tena Admit Provider: Franca Aparicio Primary Care Provider: Fili Gao Other Providers: Franca Aparicio ; Clay Pedroza Other Interventions: Discharge Summary Assessment (RN) Last Done: 02/01/22 14:17 Coding Level of Care Code D/C DAY MANAGEMENT >30 MINS Diagnoses NSTEMI (non-ST elevated myocardial infarction) I21.4 CAD (coronary artery disease) I25.10 Atrial fibrillation I48.91 Hypertension I10 Hyperlipidemia E78.5 Smoker F17.200 Aortic root dilatation I77.810
[2022-02-02] MEDS ORDERED: CLOPIDOGREL BISULFATE 75 MG TAB PO SCH (09:00)
== END 2022-02-01 14:42 | disposition home or self-care (01) ==
LOC: ED 04:18 → 2S 06:13 → SUATTDRO 08:30 → INTOOBSV 08:30

== ENCOUNTER 2022-09-23 07:05 | Observation (INO) ==
[~2022-09-23 07:05] MED LIST: BACITRACIN OINT 0.9 GM PKT ONE; LIDOCAINE 1% LOCAL 20 ML VIAL ONE; VANCOMYCIN HCL 1000MG/20ML VIAL ONE; WATER, STERILE FOR INJ 10 ML VIAL ONE
[2022-09-23] MEDS ORDERED: MIDAZOLAM HCL 5 MG/ML 1 ML VIAL ONE (07:36)
[2022-09-23] MEDS ORDERED: ceFAZolin 330 MG/ML 1 GM VIAL ONE ×2 (07:37→08:01)
[2022-09-23] MEDS ORDERED: fentaNYL citrate PF 100 MCG/2 ML VIAL ONE (07:37)
--- NOTE | 2022-09-23 07:50 | History & Physical Bridge Note ---
Date of Service September 23, 2022 History & Physical Bridge Note I have examined the patient, reviewed the History & Physical and in the interval since the performance of the History & Physical I have noted the following changes of clinical significance: Event monitoring has demonstrated multiple long pauses, often 5 to 6 seconds on a nightly basis however 1 sinus pause of about 12 seconds has been recorded. This is consistent with tachybradycardia syndrome (paroxysmal atrial fibrillation and sinus node dysfunction) with a possible component of sleep apnea or of high vagal tone. With pauses in excess of 10 seconds there is significant risk and a pacemaker is required.. I reviewed the indications, procedure, risks and alternatives with the patient, and answered all questions. Patient understands and agrees to the procedure. Consent obtained. I also reviewed the risks and use of sedation, patient understands and consent obtained.
--- NOTE | 2022-09-23 07:51 | Pre Anesthesia Assessment ---
Date of Service September 23, 2022 Pre Sedation Assessment Vital Signs Temp Pulse Resp BP Pulse Ox O2 Del Method 09/23/22 07:21 36.9 C 68 18 147/94 H 93 Room Air Cardiovascular RRR, no murmur, no edema Respiratory normal respiratory effort, lungs clear to auscultation Pre-Sedation Airway Assessment Smoking Status: Former smoker Hx Sleep Apnea: No Hx Difficult Intubation: No Short, Thick Neck: No Thyromental Distance: > or= 3.5 Finger Breadths Oral Cavity: + Dentures Mallampati Class: II ASA: ASA3 NPO Status Date of Last Intake of Fluids: 09/23/22 Time of Last Intake of Fluids: 06:00 Last Oral Intake of Fluids Comment: sip with pills Date of Last Intake of Solid Food: 09/22/22 Time of Last Intake of Solid Foods: 21:00 Procedure Planning Contraindications for Sedation: none Current Medications Reviewed: Yes Notes The planned sedation has been discussed with the patient. Informed Consent was obtained. I have identified the patient, determined the appropriateness of sedation and have assessed the patient immediately prior to the procedure. All medicine(s) and interventions are by my order.
[2022-09-23 08:13] LABS: Chol HDL Ratio 2.3 (0-5)
[2022-09-23] MEDS ORDERED: KETOROLAC TROMETHAMINE 10 MG TABLET PO PRN (09:25)
[2022-09-23] MEDS ORDERED: ACETAMINOPHEN 325 MG TAB PO PRN (09:25)
[2022-09-23] MEDS ORDERED: NITROGLYCERIN SL 0.4 MG/TAB TAB SL PRN (09:29)
--- NOTE | 2022-09-23 09:32 | Electrophysiology Report ---
Date of Service September 23, 2022 Electrophysiology Procedure Electrophysiology Procedure Report Preoperative diagnosis: Tachybradycardia syndrome, sinus node dysfunction Postoperative diagnosis: Same Procedure: Dual-chamber pacemaker implantation Surgeon: Norberto Bhakta MD Estimated blood loss: 20 cc Specimens: None Anesthesia: Local with sedation Procedure details: After obtaining informed consent for the procedure, the patient was brought to the laboratory and prepped and draped in the standard sterile manner. The left prepectoral region was anesthetized with 1% lidocaine local anesthetic and left axillary venipuncture was performed by percutaneous technique and a guidewire placed through the left subclavian vein into the superior vena cava. The area was further infiltrated with 1% lidocaine local anesthetic and a 5 cm incision was made parallel to the left clavicle and 2 cm below it and carried down to the anterior pectoralis fascia. A pacemaker pocket was formed by blunt dissection anterior to the pectoralis fascia and a vancomycin soaked sponge was placed in the pocket. An 8 Persian Medtronic lead introducer was placed over the guidewire into the left subclavian vein, the dilator and guidewire were removed and a bipolar active fixation steroid tipped ventricular lead was advanced through the introducer into the superior vena cava. A guidewire was placed through the introducer and the introducer was stripped from the lead and guidewire. Another 8 [place] Medtronic lead introducer was placed over the guidewire into the left subclavian vein, the dilator and guidewire were removed and a bipolar active fixation steroid tipped atrial lead was advanced through the introducer into the superior vena cava. A guidewire was placed back through the introducer and the introducer was stripped from the lead and guidewire. Using a curved stylette the ventricular lead was advanced through the right ventricular outflow tract into the pulmonary artery and then using a straight stylette was positioned in the right ventricular apex. The screw was extended fixing the lead in position. Pacing and sensing thresholds were evaluated in bipolar configuration and are recorded on the implant data sheet. Using a curved stylette the atrial lead was positioned in the region of the atrial appendage and the screw extended fixing the lead in position. Pacing and sensing thresholds were evaluated in bipolar configuration and are recorded on the implant data sheet. Once the leads were in position they were attached to the anterior pectoralis fascia using 2 sutures of 2-0 silk around each lead collar. The vancomycin soaked sponge was removed from the pocket, hemostasis was obtained, the pacemaker was attached to the leads and placed in the pocket with the leads coiled beneath it. The incision was closed with a running double subcutaneous closure of 3-0 Vicryl absorbable suture, followed by running subcuticular skin closure of 4-0 Vicryl absorbable suture. Bacitracin ointment was placed on the incision and a dressing applied. [facility] [place] Electrophysiology codes Indication for Procedure (1) Sinus node dysfunction: Pacing Procedure 1: Pacin Insert/Replace Pacer A & V PG Moderate Sedation Codes Moderate Sedation Codes Procedure 1: Sedation/Anesthesia: 32948 Mod Sedation by the same physician;Init15 Min Child Age 5 & Up Procedure 2: Sedation/Anesthesia: 57272 Mod Sedation by the same physician; Ea [id number] Minutes
--- NOTE | 2022-09-23 09:33 | Post Anesthesia Assessment ---
Date of Service September 23, 2022 Post Sedation Assessment Vital Signs Temp Pulse Resp BP Pulse Ox O2 Del Method 09/23/22 09:20 71 16 132/101 H 94 Room Air 09/23/22 07:21 36.9 C 68 18 147/94 H 93 Room Air Recovery Score Activity: Moves 4 extremities Respiration: Deep Breath/Cough Circulation: +/-20% PreAnes Value Consciousness: Fully Awake Oxygen Saturation: > 92% On Room Air Post Anesthesia Score: 10 Discharge Sedation Level of Care: Fast Track Phase II Post Sedation Plan On clinical assessment, the patient appears to have tolerated the sedation without complications. Patient is recovering as anticipated. Patient will continue to be monitored by nursing and may be discharged when sedation discharge criteria are met per below protocol. Upon Completions of procedure up to 15 minutes continue every 5 minute vital signs and the P.A.R. score; then discharge to a Phase I or Fast Track to Phase II per the following guidelines: * Discharge Patient to appropriate Phase II area if PAR is 8 or greater or return to pre- procedure baseline. The post - procedure orders will be as directed. * If PAR score is less than 8 or not return to pre-procedure baseline then patient will follow Phase I monitoring till PAR is reached for Phase II. The Phase I may be done in procedure room or may call to secure a Phase I area. * If naloxone or flumazenil are used for reversal, hold in Phase I for continued monitoring from when last reversal dose was given for a minimum of 60 minutes or longer pending the nurse and/or physician discretion of patient condition before discharge to Phase II. Please call the Sedation Physician to re-evaluate and complete post-note for discharge to Phase II area. Do NOT discharge from procedure sedation or Phase 1 until post- sedation evaluation note is complete by procedure /sedation MD Sedation Discharge Instructions to be given to the patient at discharge to home.
--- NOTE | 2022-09-23 13:24 | Electrocardiogram Report ---
Test Reason : Blood Pressure : / mmHG Vent. Rate : 066 BPM Atrial Rate : 066 BPM P-R Int : 164 ms QRS Dur : 100 ms QT Int : 434 ms P-R-T Axes : 042 041 044 degrees QTc Int : 454 ms Normal sinus rhythm Normal ECG When compared with ECG of 13-MAY-2022 07:38, No significant change was found Confirmed by Jay Carpenter ([id number]) on 09/23/2022 1:24:27 PM Referred By: Clay Pedroza Confirmed By:Robson Carpenter
[2022-09-23] MEDS: METOPROLOL TARTRATE 50 MG TAB PO SCH (20:54)
--- NOTE | 2022-09-24 07:05 | Cardiology Progress Note ---
Date of Service September 24, 2022 Assessment & Plan (1) Status post placement of cardiac pacemaker: Plan: Postop day #1: Plan Doing well, pacer working well stable for discharge Admission and Anticipated Discharge Date Admission Date: September 23, 2022 Results & Data Vital Signs (Past 12 Hours) Vital Signs Temp Pulse Pulse Resp BP Pulse Ox O2 Del Method 09/24/22 03:45 36.7 C 61 16 125/70 94 Room Air 09/23/22 23:57 60 09/23/22 23:33 36.7 C 63 16 130/83 93 Room Air 09/23/22 19:35 36.6 C 69 16 149/94 H 93 Room Air Laboratory Results Lipids 09/23/22 Range/Units 07:30 Triglycerides 109 (0-150) mg/dl Cholesterol 118 (0-200) mg/dl HDL Cholesterol 51 mg/dl Cholesterol/HDL Ratio 2.3 (0-5) Intake and Output 09/23/22 09/24/22 09/24/22 22:59 06:59 14:59 Other: # Unmeasured Voids 2 Weight 132 kg Weight Measurement Method Built in [facility] Diagnostic Findings Postop ECG: Sinus rhythm, appropriate pacemaker inhibition Telemetry: Normal pacer function Chest x-ray: Good lead position, no pneumothorax Pacemaker evaluation: Excellent measurements PG Care Time/CCT Total # of Minutes Spent Total Time Spent with Patient: Total time spent is greater than 50% in coordination of care (as documented) at patient's floor/unit and/or counseling patient: Coding Diagnoses Status post placement of cardiac pacemaker Z95.0
[2022-09-24] MEDS: METOPROLOL TARTRATE 50 MG TAB PO SCH (07:57)
[2022-09-24] MEDS ORDERED: CLOPIDOGREL BISULFATE 75 MG TAB PO SCH (09:00)
[2022-09-24] MEDS ORDERED: ROSUVASTATIN CALCIUM 20 MG TAB PO SCH (09:00)
[2022-09-24] MEDS ORDERED: LOSARTAN POTASSIUM 50 MG TAB PO SCH (09:00)
[2022-09-24] MEDS ORDERED: AMIODARONE 200 MG TAB PO SCH (09:00)
--- NOTE | 2022-09-24 09:00 | XRay Report ---
TWO VIEW CHEST CLINICAL HISTORY: Pacemaker implantation. FINDINGS: PA and lateral chest radiographs are compared to study dated 01/30/2022. A 2-lead cardiac p acemaker has been placed and partially obscures the left apex. Leads project over the right atrial ap pendage and the right ventricle. The heart is enlarged. The pulmonary vasculature is noncongested. T he lungs and pleural spaces are clear. There is no pneumothorax. The bony thorax appears intact. IMPRESSION: 1. A 2-lead cardiac pacemaker has been implanted as above. No pneumothorax is identified post procedu re. 2. Cardiomegaly without radiographic evidence of congestive failure. 3. The lungs are clear. ACT 112: Negative or not required by law. Electronically signed by: Nathan Hammond M.D. 09/24/2022 8:59 AM
== END 2022-09-24 13:15 | disposition home or self-care (01) | DRG 243 ==
LOC: EP 07:05 → INTOOBSV 09:21 → 2S 09:21